=== PATIENT | female | born 1945 | race Caucasian/White ===

== ENCOUNTER 2024-01-01 09:26 | Outpatient (REF) | payer MEDICARE, SELFPAY ==
--- NOTE | ~2024-01-01 | XR_ITS ---
EXAMINATION: XR KNEE, LEFT CLINICAL INFORMATION: Pain in the left knee COMPARISON: None available. TECHNIQUE: Three views of the left knee. FINDINGS: There is normal osseous mineralization. Severe narrowing of the medial and moderate narrowing of the lateral knee joint spaces with subarticular sclerosis. Small marginal tricompartmental osteophytes are noted. No evidence of suprapatellar joint effusion. Vascular calcifications are seen. Narrowing of the patellofemoral joint space is also suspected. No evidence of acute fracture or dislocation. XR/XR knee LT 3V IMPRESSION: Tricompartmental osteoarthritic changes in the left knee, greatest in the medial compartment with moderate changes of osteoarthritis. No acute osseous abnormality.
--- NOTE | ~2024-01-01 | XR_ITS ---
EXAMINATION: XR KNEE, RIGHT CLINICAL INFORMATION: Pain in the right knee. COMPARISON: None available. TECHNIQUE: 3 views of the right knee. FINDINGS: Normal osseous mineralization. There is mild valgus angulation at the knee joint. There is mild medial subluxation of the femoral condyles over the tibial plateau. Severe narrowing of the lateral knee joint space and moderate narrowing of the medial knee joint space. Tricompartmental marginal osteophytes are noted. There is subarticular sclerosis. Small osteophytes versus loose bodies are noted projecting over the medial knee joint space. Tricompartmental small marginal osteophytes. Small suprapatellar joint effusion is suspected. Narrowing of the patellofemoral joint space. No evidence of acute fracture or dislocation. No dystrophic soft tissue calcifications. XR/XR knee RT 3V IMPRESSION: Tricompartmental osteoarthritic changes with mild valgus angulation at the right knee. [id number] osteoarthritic changes at the lateral and patellofemoral compartments. Small osteophyte versus loose bodies projecting over the medial knee joint space. No acute osseous abnormality in the right knee.
== END 2024-01-01 09:27 | disposition home or self-care (01) ==
LOC: HO.HOSX 09:26
PROVIDERS: Visit Provider Orthopaedic Surgery
DX: M25.562 Pain in left knee (principal); M25.561 Pain in right knee
CPT/HCPCS: 73562; 99212

== ENCOUNTER 2024-01-01 12:34 | Outpatient (AMB) | payer MEDICARE, SELFPAY ==
--- NOTE | 2024-01-01 12:36 | A.OFFVIS_ITS ---
Vital Signs 01/01/24 12:54 Height 5 ft 2 in Weight 175 lb BMI 32.0 Intake Visit Reasons: [employer]- b/l knee pain, more pain LT knee Intake Note: Yamel is a 78 yo female who presents with complaints of intermittent pain in both of her knees, left greater than right. She states that her symptoms have gotten somewhat worse over the last few months. She has tried Aleve which s eemed to upset her stomach. She denies any locking or giving way. She has tried Tylenol which gives her minimal relief. Allergies zeclar Allergy (Mild, Uncoded 01/01/24 12:55) Hives Medication List - Last Reconciled 01/01/24 by Konrad Gil MD amlodipine 5 mg PO DAILY estradiol (Estring) 1 vag ring vaginal [id number] hydrochlorothiazide 25 mg PO DAILY ibandronate mg PO levothyroxine 75 mcg PO DAILY omeprazole 40 mg PO DAILY PFSH Social History (Updated 01/01/24 @ 12:58 by LYNDON Lindo) Current occupational status: retired Current occupation: rt handed Physical Exam Vital Signs: BMI result Body Mass Index 32.0 Const Other: Well-nourished well-developed very friendly female awake alert and oriented x3 in no acute distress Extrem Other: Bilateral lower extremity examination shows good capillary refill, no skin lesions noted, normal sensation light touch Bilateral knee examination shows minimal effusions, palpable crepitus with range of motion, pain with range of motion, no instability Results Reviewed Results Reviewed: X-rays of the patient's bilateral knee show joint space narrowing, subchondral sclerosis, no acute bony abnormalities Assessment & Plan Assessment & Plan (1) Right knee pain: Code(s): M25.561 - Pain in right knee Category: Medical (2) Left knee pain: Code(s): M25.562 - Pain in left knee Category: Medical Plan Ms. Braun presents with bilateral knee pains due to degenerative joint disease. I had a lengthy discussion with the patient regarding the treatment options. We will hold off on a cortisone injection for now. I did give the patient a prescription for Celebrex. Activity modifications were also discussed at length with the patient. The patient will follow up with me on an as-needed basis should her symptoms not plateau at an unacceptable level over the next few months. Feel free to call me at any time should questions regarding her orthopedic management arise. I spent 21 minutes in reviewing the patient's records and imaging studies, seeing the patient and documenting in the medical record. Orders: Orders XR knee LT 3V 01/01/24 M25.562 - Pain in left knee XR knee RT 3V 01/01/24 M25.561 - Pain in right knee Medications: New celecoxib (Celebrex) 200 mg PO DAILY PRN 30 caps 3RF pain Coding Level of Care Code Est Pt Level 3 (57432) Diagnoses Right knee pain M25.561 Left knee pain M25.562
[2024-01-01 12:54] VITALS: BMI 32.0
== END 2024-01-01 13:13 | disposition home or self-care (01) ==
PROVIDERS: PCP Internal Medicine; Visit Provider Orthopaedic Surgery
DX: M25.561 Pain in right knee (principal); M25.562 Pain in left knee
CPT/HCPCS: 99214

== ENCOUNTER 2024-01-29 14:13 | Outpatient (AMB) | payer MEDICARE, SELFPAY ==
--- NOTE | 2024-01-29 14:48 | MHC.OFFVIS ---
Intake Visit Reasons: OV-b/l knee pain, more pain LT knee Intake Note: Yamel is a 78 year old female who presents with complaints of progressively worsening bilateral knee pains, left greater than right. She describes her left knee pain as sharp and severe in nature. Her left knee pain has gotten worse over the last few years in spite of continued non operative treatments. She has had cortisone injections which gave her no relief. She has also failed the last 3 months of conservative treatment including a home exercise program, topical creams, anti-inflammatory medicines and Tylenol. At this point the patient's left knee pain is interfering with her activities of daily living and her ability to sleep well through the night. The patient wishes to hold off on left total knee replacement surgery for as long as possible. Allergies zeclar Allergy (Mild, Uncoded 01/29/24 14:54) Hives Medication List - Last Reconciled 01/30/24 by Konrad Gil MD amlodipine 5 mg PO DAILY estradiol (Estring) 1 vag ring vaginal [id number] hydrochlorothiazide 25 mg PO DAILY ibandronate mg PO levothyroxine 75 mcg PO DAILY omeprazole 40 mg PO DAILY PFSH Social History (Reviewed 01/29/24 @ 14:55 by Felicia Preston [facility]) Current occupational status: retired Current occupation: rt handed Physical Exam Const Other: Well-nourished well-developed very friendly female awake alert and oriented x3 in no acute distress Extrem Other: Bilateral lower extremity examination shows good capillary refill, no skin lesions noted, normal sensation light touch Bilateral knee examination shows minimal effusions, palpable crepitus with range of motion, pain with range of motion, range of motion from -3 degrees to 115 degrees, no instability Results Reviewed Results Reviewed: X-rays of the patient's bilateral knees taken previously show joint space narrowing, subchondral sclerosis, no acute bony abnormalities Assessment & Plan Assessment & Plan (1) Osteoarthritis of left knee: Code(s): M17.12 - Unilateral primary osteoarthritis, left knee Category: Medical Plan Ms. Braun presents with progressively worsening bilateral knee pains, left greater than right, due to osteoarthritis. I had a lengthy discussion with the patient regarding the treatment options. The patient wishes to hold off on left total knee replacement surgery for as long as possible. I agree with this plan. I will see whether or not the patient's insurance company will cover a viscosupplementation injection for her left knee. At this point her right knee pain is tolerable to her. I will see her back once the injection is available. Feel free to call me at any time should questions regarding her orthopedic management arise. I spent 21 minutes in reviewing the patient's records and imaging studies, seeing the patient and documenting in the medical record. Coding Level of Care Code Est Pt Level 3 (74089) Diagnoses Osteoarthritis of left knee M17.12
== END 2024-01-29 15:12 | disposition home or self-care (01) ==
PROVIDERS: PCP Internal Medicine; Visit Provider Orthopaedic Surgery
DX: M17.12 Unilateral primary osteoarthritis, left knee (principal)
CPT/HCPCS: 99213

== ENCOUNTER → 2024-01-29 14:13 | Outpatient (BNVA) | payer MEDICARE, SELFPAY | PROVIDERS: PCP Internal Medicine; Visit Provider Orthopaedic Surgery | DX: M17.12 Unilateral primary osteoarthritis, left knee (principal) | CPT/HCPCS: 99212 ==

== ENCOUNTER 2024-02-12 14:22 | Outpatient (AMB) | payer MEDICARE, SELFPAY ==
[2024-02-12 14:24] VITALS: BMI 32.0
--- NOTE | 2024-02-12 14:24 | A.OFFVIS_ITS ---
Vital Signs 02/12/24 14:24 Height 5 ft 2 in Weight 175 lb BMI 32.0 Intake Visit Reasons: Left knee pain Intake Note: Ms. Braun presents with complaints of progressively worsening left knee pain. She describes her pain as sharp and severe in nature. Her pain has gotten worse over the last few years in spite of continued non operative treatments. She has had cortisone injections in the past which gave her minimal relief. She would like to hold off on left total knee replacement surgery for as long as possible. She has tried Tylenol and anti-inflammatory medicines which gave her minimal relief. The patient's left knee pain is now interfering with her activities of daily living and her ability to sleep well through the night. She has done physical therapy exercises which aggravated her pain. Allergies zeclar Allergy (Mild, Uncoded 01/29/24 14:54) Hives Medication List - Last Reconciled 02/13/24 by Konrad Gil MD amlodipine 5 mg PO DAILY estradiol (Estring) 1 vag ring vaginal [id number] hydrochlorothiazide 25 mg PO DAILY ibandronate mg PO levothyroxine 75 mcg PO DAILY omeprazole 40 mg PO DAILY PFSH Social History Current occupational status: retired Current occupation: rt handed Physical Exam Vital Signs: BMI result Body Mass Index 32.0 Const Other: Well-nourished well-developed very friendly female awake alert and oriented x3 in no acute distress Extrem Other: Bilateral lower extremity examination shows good capillary refill, no skin lesions noted, normal sensation light touch Left knee examination shows a mild effusion, palpable crepitus with range of motion, pain with range of motion, range of motion from -3 degrees to 110 degrees, no instability Office Procedures Joint Injection/Aspiration Joint Injection/Aspiration Primary Site: left knee Prep: site was prepped using aseptic technique Injected: 60 mg of (Durolane viscosupplementation) and 1% plain lidocaine Procedure: The patient tolerated the procedure well Coding 98537 - Large joint Procedure code (CPT) selection complete Results Reviewed Results Reviewed: X-rays of the patient's left knee taken previously show joint space narrowing, subchondral sclerosis, no acute bony abnormalities Assessment & Plan Assessment & Plan (1) Osteoarthritis of left knee: Code(s): M17.12 - Unilateral primary osteoarthritis, left knee Category: Medical (2) Left knee pain: Code(s): M25.562 - Pain in left knee Category: Medical Plan Ms. Braun presents with progressively worsening left knee pain due to osteoarthritis. I had a lengthy discussion with the patient regarding the treatment options. The risks and benefits of a Durolane viscosupplementation i njection were discussed at length with the patient. The patient wished to proceed. She tolerated the injection well. Prior to the injection I aspirated 10 cc of clear fluid from her left knee. She will continue with her home exercise program. She will contact me prior to her follow-up appointment in 3 months should any questions or concerns arise. Feel free to call me at any time should questions regarding her orthopedic management arise. I spent 21 minutes in reviewing the patient's records and imaging studies, seeing the patient and documenting in the medical record. Orders: Orders XR hip LT min 2V 03/11/24 M25.552 - Pain in left hip AMB Joint Injection/Aspiration 02/12/24 M17.12 - Unilateral primary osteoarthritis, left knee Coding Level of Care Code Est Pt Level 3 (43662) Complex EM visit Add On G2211 Diagnoses Osteoarthritis of left knee M17.12 Left knee pain M25.562 CPT Codes Coding - 59001 Large joint: 88774 - Large joint ([id number])
== END 2024-02-12 14:54 | disposition home or self-care (01) ==
PROVIDERS: PCP Internal Medicine; Visit Provider Orthopaedic Surgery
DX: M17.12 Unilateral primary osteoarthritis, left knee (principal)
CPT/HCPCS: 20610; 99213

== ENCOUNTER → 2024-02-12 14:22 | Outpatient (BNVA) | payer MEDICARE, SELFPAY | PROVIDERS: PCP Internal Medicine; Visit Provider Orthopaedic Surgery | DX: M17.12 Unilateral primary osteoarthritis, left knee (principal) | CPT/HCPCS: 20610; 99212; J7318 ==

== ENCOUNTER 2024-03-11 13:27 | Outpatient (AMB) | payer MEDICARE, SELFPAY ==
[2024-03-11 13:30] VITALS: BMI 32.0
--- NOTE | 2024-03-11 13:30 | A.OFFVIS_ITS ---
Vital Signs 03/11/24 13:30 Height 5 ft 2 in Weight 175 lb BMI 32.0 Intake Visit Reasons: New prob- Left hip pain Intake Note: Ms. Braun is a 78-year-old female who presents with complaints of mild intermittent discomfort along the lateral aspect of her left hip after undergoing left total hip replacement surgery several years ago. The patient states that she aggravated her left hip several weeks ago while walking her dog. She denies any fevers or chills. She does take Aleve as needed for discomfort. She denies any numbness or tingling in either of her lower extremities. Allergies zeclar Allergy (Mild, Uncoded 01/29/24 14:54) Hives Medication List - Last Reconciled 03/11/24 by Konrad Gil MD amlodipine 5 mg PO DAILY estradiol (Estring) 1 vag ring vaginal [id number] hydrochlorothiazide 25 mg PO DAILY ibandronate mg PO levothyroxine 75 mcg PO DAILY omeprazole 40 mg PO DAILY PFSH Social History Current occupational status: retired Current occupation: rt handed Physical Exam Vital Signs: BMI result Body Mass Index 32.0 Const Other: Well-nourished well-developed very friendly female awake alert and oriented x3 in no acute distress Extrem Other: Bilateral lower extremity examination shows good capillary refill, no skin lesions noted, normal sensation light touch Left hip examination shows minimal discomfort with range of motion, mild tenderness over her bursa overlying skin lesions Results Reviewed Results Reviewed: X-rays of the patient's left hip taken today show a total hip arthroplasty in good position with no signs of loosening, no acute bony abnormalities Assessment & Plan Assessment & Plan (1) Left hip pain: Code(s): M25.552 - Pain in left hip Category: Medical Plan Ms. Braun presents with intermittent discomfort along the lateral aspect of her left hip most likely greater trochanteric bursitis. At this point the patient's symptoms are tolerable to her. We will hold off on a cortisone injection. She will continue with her home exercise program. She does know to take antibiotics before any dental work. She will contact me prior to her annual follow-up appointment should her symptoms worsen in any way. Feel free to call me at any time should questions regarding her orthopedic management arise. I spent 21 minutes in reviewing the patient's records and imaging studies, seececy cuevas the patient and documenting in the medical record. Orders: Orders XR hip LT min 2V Today M25.552 - Pain in left hip Coding Level of Care Code Est Pt Level 3 (80659) Complex EM visit Add On G2211 Diagnoses Left hip pain M25.552
== END 2024-03-11 13:58 | disposition home or self-care (01) ==
PROVIDERS: PCP Internal Medicine; Visit Provider Orthopaedic Surgery
DX: M25.552 Pain in left hip (principal); Z96.642 Presence of left artificial hip joint
CPT/HCPCS: 99213

== ENCOUNTER 2024-03-11 13:57 | Outpatient (REF) | payer MEDICARE, SELFPAY ==
--- NOTE | ~2024-03-11 | XR_ITS ---
EXAMINATION: XR HIP, LEFT CLINICAL INFORMATION: M25.552 - Pain in left hip. COMPARISON: None available. TECHNIQUE: 2 views of the left hip. FINDINGS: Diffuse demineralization. Degenerative changes in the imaged lumbar spine. Mild degenerative changes on AP view of the right hip. Bilateral sacroiliac joints are preserved. Status post left total hip arthroplasty. Alignment maintained. Hardware appears intact. Asymmetric density overlies the left iliac wing, possibly a bony sclerotic lesion such as a bone island versus soft tissue calcification. XR/XR hip LT min 2V IMPRESSION: 1. Status post left total hip arthroplasty. Alignment maintained. Hardware appears intact. 2. Asymmetric density overlies the left iliac wing, possibly a bony sclerotic lesion such as a bone island versus soft tissue calcification. Electronically signed by: Marli Akhtar MD 05/04/2024 11:43 AM [facility]UM[facility] HOWARD
== END 2024-03-11 13:58 | disposition home or self-care (01) ==
LOC: HO.HOSX 13:57
PROVIDERS: Visit Provider Orthopaedic Surgery
DX: M25.552 Pain in left hip (principal)
CPT/HCPCS: 73502; 99212

== ENCOUNTER 2024-05-21 11:26 | Outpatient (AMB) | payer MEDICARE, SELFPAY ==
--- OUTSIDE RECORDS SUMMARY | 2024-05-21 11:29 | XMS_ITS | Data Portability ---
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 Lab pap, IG + reflex HPV 2016 017 [facility], [address] [place], [address] 7 12:04:32 Referral None recorded. Procedures None recorded. Surgeries None recorded. Imaging MAMMO, screening, digital, bilateral 2015 016 aomrani Not available 6 12:14:54 MAMMO, screening, digital, bilateral 2016 017 [email or web address] Not available 7 14:52:25 Medication Orders None recorded. Patient TargetsNo targets recorded. Patient Instructions Encounter Date Encounter Id Patient Instructions Last Modified By Organization Details Last Modified Time 07/25/2015 [id number] Patient presents for a well woman exam. Her history is unremarkable and her exam is normal. She has been counseled regarding Pap smear screening as per guidelines of every three years for cytology review with high risk HPV testing. I have recommended an annual Digital Bilateral Mammogram. I have counseled her about the benefit of performing monthly self-breast exams. We spoke about the recommendation of 1200 mg of daily Calcium supplementation and 600iu of Vitamin D daily. She has been told to schedule a well woman Medication Care Manager exam in one year and to call us with any question or concerns regarding her health and welfare. aomrani Not available 07/25/2015 11:19:51 11/12/2016 [id number] Patient presents for a well woman exam. Her history is unremarkable and her exam is normal. She has been counseled regarding Pap smear screening as per guidelines of every three years for cytology review with high risk HPV testing. I have recommended an annual Digital Bilateral Mammogram . I have counseled her about the benefit of performing monthly self-breast exams. We spoke about the recommendation of 1200 mg of daily Calcium supplementation and 600iu of Vitamin D daily. She was been told to schedule a well woman Medication Care Manager exam in one year and to call us with any question or concerns regarding her health and welfare. aomrani Not available 11/12/2016 11:16:17 01/31/2018 [id number] Patient presents for a well woman exam. Her history is unremarkable and her exam is normal. She has been counseled regarding Pap smear screening as per guidelines of every three years for cytology review with high risk HPV testing. I have recommended an annual Digital Bilateral Mammogram . I have counseled her about the benefit of performing monthly self-breast exams. We spoke about the recommendation of 1200 mg of daily Calcium supplementation and 600iu of Vitamin D daily. She was been told to schedule a well woman Medication Care Manager exam in one year and to call us with any question or concerns regarding her health and welfare. aomrani Not available 01/31/2018 13:19:30 02/12/2020 [id number] Patient presents for a well woman exam. Her history is unremarkable and her exam is normal. She has been counseled regarding Pap smear screening as per guidelines of every three years for cytology review with high risk HPV testing. I have recommended an annual Digital Bilateral Mammogram . I have counseled her about the benefit of performing monthly self-breast exams. We spoke about the recommendation of 1200 mg of daily Calcium supplementation and 600iu of Vitamin D daily. She was been told to schedule a well woman Medication Care Manager exam in one year and to call us with any question or concerns regarding her health and welfare. [email or web address] Not available 02/12/2020 12:44:22 04/20/2022 [id number] Patient presents for a well woman exam. Her history is unremarkable and her exam is normal. She has been counseled regarding Pap smear screening as per guidelines of every three years for cytology review with high risk HPV testing. I have recommended an annual Digital Bilateral Mammogram . I have counseled her about the benefit of performing monthly self-breast exams. We spoke about the recommendation of 1200 mg of daily Calcium supplementation and 600iu of Vitamin D daily. She was been told to schedule a well woman Medication Care Manager exam in one year and to call us with any question or concerns regarding her health and welfare. [email or web address] Not available 04/20/2022 12:51:59 Reason for Referral None Reported. Results Created Date Observation Date Name Description Value Unit Range Abnormal Flag Note LastModifiedBy Organization Detail LastModifiedTime 11/13/19 17 11/13/2016 pap, IG + refle x HPV report GYNEC OLOGI BILL CYTOL OGY REPOR T A. THINP REP PAP TEST WITH HPV REFLE X: SPECI MEN ADEQU ACY: SATIS FACTO RY FOR EVALU ATION ; ENDOC ERVIC AL/TR ANSFO RMATI ON ZONE COMPO NENT PRESE NT. INTER PRETA TION: NEGAT GUERO FOR INTRA EPITH ELIAL LESIO N OR YAIR VILLAVICENCIO . Elect shoshana huizar Ping d Out By: KELLI RICHARD, TJ( CP) CLINI BILL INFOR MATTRISH N: LMP: NI Z01.4 19 Numbe r of vials /slid es submi tted: 1 Speci men sourc e: CERVI X/END OCERV IX Abnor mal Pap Date: NI Autom ated presc reeni ng of all liqui d based speci mens is perfo rmed by the ThinP rep Imagi ng Syste mmoises s other pierce state d. The Pap test is a scree stacey test with an inher ent false negat guero rate. [facility]i ng [facility] , [address] [place] [address] CLIA [id number] CL-PO [id number]. Not Available [facility] [address] [place], [address] 11/13/2016 12:04:32 04/18/20 22 04/18/2022 [facility]Y ASSES SMENT RESUL T [facility] - cancer history assessment result Meets criter ia abnormal See PDF for compl ete resul ts. [facility] it[facility] cance [facility] crite gabriel asses sment - MEETS CHAPARRITA HINES NCCN FAP 2021 Not Available [facility] [address], [place], [address], 04/18/2022 13:28:33 05/23/20 16 05/21/2016 MAMMO , scree stacey, digit al, bilat eral No observ ation record ed. [email or web address] Not Available 2015 14:08:06 06/14/19 18 06/07/2017 MAMMO , scree stacey, digit al, bilat eral No observ ation record ed. Not Available 2017 08:05:34 06/15/19 20 06/11/2019 MAMMO , scree stacey, tomos ynthe sis, bilat eral No observ ation record ed. [email or web address] Not Available 2019 10:38:03 07/06/19 21 07/06/2020 MAMMO , scree stacey, bilat eral No observ ation record ed. BARCODE Not Available 2020 15:36:44 07/18/19 21 07/18/2020 imagi ng/di agnos tic resul t No observ ation record ed. Not Available 2020 10:18:16 02/27/20 22 02/21/2022 MAMMO , scree stacey, digit al, bilat eral No observ ation record ed. [email or web address] Not Available 2021 13:12:39 03/02/20 22 03/02/2022 imagi ng/di agnos tic resul t No observ ation record ed. Not Available 2021 11:11:47 03/02/20 22 03/02/2022 imagi ng/di agnos tic resul t No observ ation record ed. Not Available 2021 11:11:47 Result Notes None recorded. Problems Name Problem SNOMED Code Status Onset Date Resolution Date Notes Provider Name and Address Organization Details Recorded Time Benign essential hypertension 6451476 Active 2008 aLla Gresham null, [place] [facility] 6 09:53:55 Chronic pain 39106818 Active 2011 Lala bradford, [facility] 6 09:53:55 Problem Notes None recorded. Procedures Surgical History Date Name Laterality Status Provider Name and Address Organization Details Recorded Time 04/20/20 22 [id number] completed MICHELLE JACOME MD [address], [place], [address], [facility] 04/20/2022 12:50:09 02/22/20 22 Date of Last Mammogram completed Lala Gresham [facility] 04/20/2022 12:31:21 06/10/19 22 Other completed Lala Gresham [facility] 04/20/2022 12:31:38 02/12/20 20 [id number] completed MICHELLE JACOME MD [address], [place], [address], [facility] 02/12/2020 12:44:07 06/10/19 20 Cataract Surgery completed Lala Gresham [facility] 04/20/2022 12:31:38 02/01/20 18 [id number] completed MICHELLE JACOME MD [address], [place], [address], [facility] 01/31/2018 13:18:47 11/13/19 17 [id number] completed MICHELLE JACOME MD [address], [place], [address], [facility] 11/12/2016 11:15:36 11/13/19 17 [id number]-[id number] completed MICHELLE JACOME MD [address], [place], [address], [facility] 11/12/2016 11:15:32 11/13/19 17 [id number] completed MICHELLE JACOME MD [address], [place], [address], [facility] - [facility] 11/12/2016 11:15:25 11/13/19 17 [id number] completed MICHELLE JACOME MD [address], [place], [address], [facility] - [facility] 11/12/2016 11:15:41 11/13/19 17 [id number] completed MICHELLE JACOME MD [address], [place], [address], [facility] - [facility] 11/12/2016 11:15:28 11/13/19 17 Date of Last Pap Smear completed Page Davenport [facility] 01/31/2018 11:50:49 07/25/19 16 [id number] completed MICHELLE JACOME MD [address], [place], [address], [facility] 07/25/2015 11:19:33 07/25/19 16 [id number] completed MICHELLE JACOME MD [address], [place], [address], [facility] - [facility] 07/25/2015 11:19:33 07/25/19 16 [id number] completed MICHELLE JACOME MD [address], [place], [address], [facility] 07/25/2015 11:19:33 07/25/19 16 [id number] completed MICHELLE JACOME MD [address], [place], [address], [facility] - [facility] 07/25/2015 11:19:33 07/25/19 16 [id number] completed MICHELLE JACOME MD [address], [place], [address], [facility] 07/25/2015 11:19:33 Tonsillectomy completed Page Davenport [facility] 11/12/2016 10:21:56 Appendectomy completed Page Davenport [facility] 11/12/2016 10:21:48 Imaging Results Imaging Date Name Status LastModified by Organiz ation Details LastModified Time 05/21/2016 MAMMO, screening, digital, bilateral completed [email or web address] Information not available 05/23/2016 14:08:06 06/07/2017 MAMMO, screening, digital, bilateral completed Information not available 06/21/2017 08:05:34 06/11/2019 MAMMO, screening, tomosynthesis, bilateral completed [email or web address] Information not available 06/15/2019 10:38:03 07/06/2020 MAMMO, screening, bilateral completed BARCODE Information not available 07/06/2020 15:36:44 07/18/2020 imaging/diagno stic result completed Information not available 07/27/2020 10:18:16 02/21/2022 MAMMO, screening, digital, bilateral completed [email or web address] Information not available 02/26/2022 13:12:39 03/02/2022 imaging/diagno stic result completed Information not available 03/15/2022 11:11:47 03/02/2022 imaging/diagno stic result completed Information not available 03/15/2022 11:11:47 Procedure Notes None recorded. Medical Equipment None Reported. Allergies Allergen ID Allergen Name Allergen Category Reaction Reaction Severity Criticality Documentation Date Start Date Code Code System Note Provider Name and Address Organization Details Recorded Time 286447 amoxicill in trihydrat e medicatio n Not available Not available Not available 10/02/20142007 23068 8 RxNorm Not Available [facility] 5 14:39:44 703947 Ceclor medicatio n Not available Not available Not available 11/12/201609359 5 RxNorm Page Davenport null, [facility] 7 10:20:03 Medications Name Sig Start Date Stop Date Status Note LastModified by Organization Details LastModified Time Estring 2 mg (7.5 mcg/24 hour) vaginal ring INSERT 1 RING VAGINALL Y EVERY 3 MONTHS 12/26/ 2023 active Not Available Not Available Not Avai lable Carafate 100 mg/mL oral suspensio n 01/31 completed Not Available Not Available Not Available clindamyc in HCl 300 mg capsule TAKE 2 CAPSULES BY MOUTH 1 HOUR PRIOR TO DENTAL APPOINTM ENT 04/20 completed Not Available Not Available Not Available ondansetr on HCl 4 mg tablet TAKE 1 TABLET BY MOUTH DAILY NEEDED FOR NAUSEA.O N COLONOSC OPY PREP DAY START 1 TABLET BY MOUTH EVERY 6 HOURS TO PREVENT PREP INDUCED NAUSEA 04/20 completed Not Available Not Available Not Available amlodipin e 5 mg tablet TAKE 1 TABLET BY MOUTH ONCE DAILY active Not Available Not Available No t Available Diovan 80 mg tablet TAKE 1 TABLET (80MG) BY ORAL ROUTE EVERY DAY 02/10 completed PRESCRIB ED ELSEWHER E Not Available Not Available Not Available sulfameth oxazole 800 mg-trimet hoprim 160 mg tablet TAKE 1 TABLET BY MOUTH TWICE DAILY FOR 7 DAYS 04/20 completed Not Available Not Available Not Available omeprazol e 40 mg capsule,d elayed release TAKE 1 CAPSULE BY MOUTH ONCE DAILY active Not Available Not Available No t Available Mi-Acid Gas Relief (simethic one) 80 mg chewable tablet 04/20 completed Not Available Not Available Not Available omeprazol e 10 mg capsule,d elayed release TAKE 2 CAPSULE BY ORAL ROUTE EVERY DAY BEFORE A MEAL 11/12 completed Not Available Not Available Not Available methocarb samuel 750 mg tablet TAKE 1 TABLET BY MOUTH EVERY 8 HOURS NEEDED 04/20 completed Not Available Not Available Not Available meclizine 25 mg tablet TAKE 1 TABLET BY MOUTH EVERY 6 TO 8 HOURS NEEDED 04/20 completed Not Available Not Available Not Available pantopraz ole 40 mg tablet,de layed release 01/31 completed Not Available Not Available Not Available telmisart an 40 mg tablet TAKE 1 TABLET BY MOUTH ONCE DAILY 04/20 completed Not Available Not Available Not Available neomycin- polymyxin -dexameth 3.5 mg/mL-10, 000 unit/mL-0 .1% eye drops 02/06 completed Not Available Not Available Not Available ranitidin e 150 mg tablet 01/31 completed Not Available Not Available Not Available Euthyrox 50 mcg tablet TAKE 1 TABLET BY MOUTH ONCE DAILY active Not Available Not Available No t Available bisacodyl 5 mg tablet,de layed release TAKE DIRECTED BY MD OFFICE PREPROCE DURE 04/20 completed Not Available Not Available Not Available hydrochlo rothiazid e 25 mg tablet TAKE 1 TABLET BY MOUTH ONCE DAILY active Not Available Not Available No t Available polyethyl augusta glycol 3350 17 gram/dose oral powder MIX 17GM DIRECTED IN 8 OZ OF WATER AND TAKE ONCE DAILY FOR 7 DAYS PRIOR TO COLONOSC OPY 04/20 completed Not Available Not Available Not Available levofloxa lucia 500 mg tablet 02/06 completed Not Available Not Available Not Available oxycodone 5 mg tablet TAKE 1 TO 2 TABLETS EVERY 4 HOURS NEEDED FOR PAIN AFTER SURGERY 04/20 completed Not Available Not Available Not Available Pneumovax -23 25 mcg/0.5 mL injection syringe 02/11 completed Not Available Not Available Not Available Fosamax 70 mg/75 mL oral solution TAKE 75 MILLILIT ER EVERY WEEK IN THE MORNING, AT LEAST 30 MINUTES BEFORE THE FIRST FOOD, BEVERAGE , O R MEDICATI ON OF THE DAY 11/23 completed PRESCRIB ED ELSEWHER E Not Available Not Available Not Available ibandrona te 150 mg tablet TAKE 1 TABLET BY MOUTH EVERY MONTH ON THE SAME DAY 2023 active Not Available Not Available Not Avai lable Metamucil active Not Available Not Wendi ilable Not Available olopatadi ne 0.2 % eye drops INSTILL 1 DROP BOTH EYES EVERY MORNING active Not Available Not Available No t Available Suprep Bowel Prep Kit 17.5 gram-3.13 gram-1.6 gram oral solution TAKE 177 ML BY MOUTH TWICE DAILY (EVERY 12 HOURS) 04/20 completed Not Available Not Available Not Available Virtussin AC 10 mg-100 mg/5 mL oral liquid 02/06 completed Not Available Not Available Not Available selenium sulfide 2.5 % lotion APPLY TO AFFECTED AREA EVERY DAY FOR 7 DAYS 04/20 completed Not Available Not Available Not Available Shingrix (PF) 50 mcg/0.5 mL intramusc ular suspensio n, kit active Not Available Not Available Not Available Fluzone High-Dose 2813-3622 (PF) 180 mcg/0.5 mL intramusc ular syringe 02/11 completed Not Available Not Available Not Available Plenvu 140 gram-9 gram-5.2 gram powder packs USE DIRECTED PER PACKAGE INSTRUCT IONS 04/20 completed Not Available Not Available Not Available Fluad 2018- 65yr up(PF)45 mcg(15 mcgx3)/0. 5 mL intramusc ular syringe 02/11 completed Not Available Not Available Not Available Fluad Quad 9228-0726 (65yr up)(PF) 60 mcg (15 mcg x 4)/0.5mL IM syringe 04/20 completed Not Available Not Available Not Available Vitals Date Recorded Body height Body weight Body mass index (BMI) Systolic blood pressure Diastolic blood pressure Provider Name and Address Organization Details Last Updated DateTime 07/25/2015 157.48 cm 45577.07 238 g 31.8 kg/m2 120 mm[Hg] 74 mm[Hg] Lala Gresham [facility] 6 10:02:03 Date Recorded Body height Body weight Body mass index (BMI) Systolic blood pressure Diastolic blood pressure Provider Name and Address Organization Details Last Updated DateTime 11/12/2016 157.48 cm 33928.63 g 32.9 kg/m2 162 mm[Hg] 82 mm[Hg] Page Davenport [facility] 7 10:32:03 Date Recorded Body height Body mass index (BMI) Body weight Systolic blood pressure Diastolic blood pressure Provider Name and Address Organization Details Last Updated DateTime 01/31/2018 157.48 cm 33.3 kg/m2 89555.81 g 154 mm[Hg] 93 mm[Hg] TRIAGE_MA O3 [address] [facility], [address], [place], [address], [facility] 8 12:04:24 Date Recorded Body height Body mass index (BMI) Body weight Body temperature Systolic blood pressure Diastolic blood pressure Provider Name and Address Organization Details Last Updated DateTime 0 157.48 cm 33.7 kg/m2 50570 g 98.4 [degF] 132 mm[Hg] 86 mm[Hg] Lala Gresham [facility] 0 11:56:36 Date Recorded Body height Body mass index (BMI) Body weight Systolic blood pressure Diastolic blood pressure Provider Name and Address Organization Details Last Updated DateTime 04/20/2022 157.48 cm 28.7 kg/m2 42372 g 169 mm[Hg] 82 mm[Hg] Lala Gresham [place] - [facility] 12:42:19 Social History Question Answer Notes LastModified by Organizat ion Details LastModified Time Tobacco Smoking Status Former Smoker [email or web address] [address] [facility], [address], [place], [address], [facility] - [facility] 01/31/2018 11:56:01 What Is Your Level Of Alcohol Consumption? Moderate Information not available 01/31/2018 Concerns About Meeting Basic Needs (food, Housing, Heat, Etc)? No Information not available 04/20/2022 Education 2 Year College Information not available 04/20/2022 What Is The Highest Grade Or Level Of School You Have Completed Or The Highest Degree You Have Received? [id number] Information not available 04/20/2022 Do You Have Any Children? Yes Information not available 01/31/2018 Does Your Partner Physically Hurt You Or Threaten To Hurt You? No Information not available 11/12/2016 Has Your Partner Forced You To Have Sex Or Perform Sex Acts When You Did Not Want To? No Information not available 11/12/2016 Does Your Partner Insult, Scream At Or Talk Down To You? No Information not available 11/12/2016 Does Your Partner Control You Or Any Part Of Your Life? No Information not available 11/12/2016 Are You Afraid Of Your Partner? No Information not available 11/12/2016 Drug Use? No Information no t available 11/12/2016 Do You Feel Safe At Home? Yes Information not available 01/31/2018 What Was The Date Of Your Most Recent Tobacco Screening? 01/31/2018 Information not available 04/20/2022 How Many Children Do You Have? 2 Information not available 01/31/2018 How Much Tobacco Do You Smoke? No Information not available 04/20/2022 General Stress Level Low Information not available 04/20/2022 Do You Feel Stressed (tense, Restless, Nervous, Or Anxious, Or Unable To Sleep At Night)? [id number] Information not available 04/20/2022 Have You Recently Traveled Abroad? No Information not available 02/12/2020 Have You Recently (within The Last 12 Weeks, Or During A Current ) Traveled To Or Lived In A Zika-affected Area? No Information not available 04/20/2022 Sex: Female Functional Status Question Answer Note LastModified by Organizat ion Details LastModified Time What is your exercise level? Occasional Information not available 01/31/2018 Mental Status None recorded. Family History Relationship Description Onset Age of this Age Resolved Age Notes LastModified by Organization Details LastModified Time Father Toxic cirrhosis Not available 2015 09:58:05 Brother Murder murder victim Not available 07/25/2015 09:58:05 Medical History Condition Response *No Diseases or Conditions Y Blood clots N Lung Disease N Depression N Defects or Inherited Disease N Anesthesia Complications N Neurological Disorder N Anxiety Disorder N HSV N Cancer N Stroke N HIV N Heart Problems N Kidney or Bladder Problems N Thyroid Problems Y Psychiatric Illness N Diabetes N Blood Transfusions N Abuse/Domestic Violence N Asthma N Hepatitis N Hypertension Y Osteoporosis Y Gynecological History Statement/Question Response BrCa Positive N Infertility N Date of Last Mammogram 02/21/2022 IPV Screen Done 02/12/2020 HPV Vaccine N Endometriosis Y Current Control Method N/A Age at Menarche 16 Fibroids N Age at First Child 26 Cervical Cancer N Uterine Cancer N Current Control Method Menopause Ovarian Cancer N Breast Cancer N Sexually Active? Y Sexual Problems? N Date of Last Pap Smear 11/12/2016 Last HPV Result Negative Obstetrics History GPAL:G 2 P 2 0 0 2 Type Value Full Term 2 Living 2 Total 2 Past Encounters Encounter ID Performer Location Encounter Start Date Encounter Closed Date Diagnosis/Indication Diagnosis SNOMED-CT Code Diagnosis ICD10 Code [id number] MICHELLE JACOME MD MAO4 [address] [facility] [place] [address] 07/25/2015 09:48:19 07/25/2015 15:26:26 Gynecologic examination 40098510 Z01.419 Screening mammography 24 670186 Z12.31 [id number] MICHELLE JACOME MD MAO3 [address] [address] 11/12/2016 09:44:45 11/14/2016 11:34:13 Gynecologic examination 64386556 Z01.419 Screening mammography 24 926017 Z12.31 [id number] MD [facility] [address] [address] 01/31/2018 11:30:27 02/03/2018 10:38:38 Gynecologic examination 68966863 Z01.419 Screening mammography 24 446993 Z12.31 [id number] MD [facility] [address] [address] 02/12/2020 11:42:23 02/16/2020 10:13:39 Gynecologic examination 04879130 Z01.419 Screening mammography 24 532690 Z12.31 [id number] MD [facility] [address] [address] 04/20/2022 12:06:51 04/23/2022 13:57:32 Gynecologic examination 60786566 Z01.419 Screening mammography 24 379018 Z12.31 Health Concerns Section Related Observation LastModified by Organization Detai ls LastModified Time None Recorded Concern Status LastModified by Organization Details LastModified Time None Recorded Advance Directives Directive None Recorded Payers Encounter Date Sequence Insurance Name Policy Number Policy Partida Covered Member ID Partida Member ID Guarantor Name 07/25/2015 1 [place]: [place]GS Yamel E [place] [id number] Yamel E [place] 07/25/2015 1 [place] [id number] Connor Braun [id number] Yamel E [place]ford 11/12/2016 1 [place] Yamel E [place] [id number] Yamel E [place] 11/12/2016 1 [place] [id number] Connor Braun [id number] Yamel E [place] 01/31/2018 1 [facility] (MEDICARE REPLACEMENT/A DVANTAGE - PPO) [id number] Yamel E [place]ford [id number] Yamel Goodman [place] 02/12/2020 1 [facility] (MEDICARE REPLACEMENT/A DVANTAGE - PPO) [id number] Yamel Goodman [place] [id number] Yamel E [place] 04/20/2022 1 [facility] (MEDICARE REPLACEMENT/A DVANTAGE - PPO) [id number] Yamel Goodman [place] [phone] Yamel Braun Notes Date Note Type Note Provider Name and Address Organization Details Recorded Time 07/25/2015 text/html [facility] Annual GYNReported bypatient.History: no gynecologic complaints Urinary symptoms:No hematuria; No incontinence Vulva:No genital lesion Vagina:Normal vaginal discharge Breast:No breast pain; No breast lump; No nipple discharge Menopausal Symptoms:No menopausal symptoms; Normal vaginal lubrication Psychological symptoms:No depression; No anxiety Preventive measures:Encourage self breast examination; Encourage regular exercise; Mammogram performed within the past year MICHELLE JACOME MD [address] [place] [address] 07/25/2015 11:20:00 11/12/2016 text/html [facility] Annual GYNReported bypatient.History: no gynecologic complaints Urinary symptoms:No hematuria; No incontinence Vulva:No genital lesion Vagina:Normal vaginal discharge Breast:No breast pain; No breast lump; No nipple discharge Menopausal symptoms:No menopausal symptoms; Normal vaginal lubrication Psychological symptoms:No depression; No anxiety Preventive measures:Encourage self breast examination; Encourage regular exercise; Mammogram performed within the past year; Up to date on colonoscopy screening; DEXA needs to schedule MICHELLE JACOEM MD [address] [place] [address], [address] [place] [address] 11/12/2016 11:57:19 01/31/2018 text/html [facility] Annual GYNReported bypatient.History: no gynecologic complaints Urinary symptoms:No hematuria; No incontinence Vulva:No genital lesion Vagina:Normal vaginal discharge Breast:No breast pain; No breast lump; No nipple discharge Menopausal symptoms:No menopausal symptoms; Normal vaginal lubrication Psychological symptoms:No depression; No anxiety Preventive measures:Encourage self breast examination; Encourage regular exercise; Mammogram performed within the past year MICHELLE JACOME MD [address], [phone], [facility] 01/31/2018 13:19:53 02/12/2020 text/html [facility] Annual GYNReported bypatient.History: no gynecologic complaints Urinary symptoms:No hematuria; No incontinence Vulva:No genital lesion Vagina:Normal vaginal discharge Breast:No breast pain; No breast lump; No nipple discharge Menopausal symptoms:No menopausal symptoms; Normal vaginal lubrication Psychological symptoms:No depression; No anxiety Preventive measures:Encourage self breast examination; Encourage regular exercise; Mammogram performed within the past year; Up to date on colonoscopy screening MICHELLE JACOME MD [address], [phone], [facility] 02/12/2020 12:44:41 04/20/2022 text/html [facility] Annual GYNReported bypatient.History: no gynecologic complaints Urinary symptoms:No hematuria; No incontinence Vulva:No genital lesion Vagina:Normal vaginal discharge Breast:No breast pain; No breast lump; No nipple discharge Menopausal symptoms:No menopausal symptoms; Normal vaginal lubrication Psychological symptoms:No depression; No anxiety Preventive measures:Encourage self breast examination; Encourage regular exercise; Followed with Q3 year pap smear and high risk HPV typing; Mammogram performed within the past year Lost > 30# . Had a hip replacement. MICHELLE JACOME MD [address], [phone], [facility] 04/20/2022 13:18:58 OBGyn Episode No OBEpisode recorded.
--- NOTE | 2024-05-21 11:47 | MHC.OFFVIS ---
Vital Signs 05/21/24 11:50 Height 5 ft 2 in Weight 175 lb BMI 32.0 Intake Visit Reasons: OV-Left hip pain Intake Note: Yamel is a 78 year old female who presents today for a follow up of her left hip pain. The patient states that her discomfort has improved significantly. She reports mild intermittent discomfort along the lateral aspect of her left hip. She denies any fevers or chills. She does take oxycodone intermittently to help her sleep. Allergies zeclar Allergy (Mild, Uncoded 01/29/24 14:54) Hives Medication List - Last Reconciled 05/21/24 by Konrad Gil MD amlodipine 5 mg PO DAILY estradiol (Estring) 1 vag ring vaginal [id number] hydrochlorothiazide 25 mg PO DAILY ibandronate mg PO levothyroxine 75 mcg PO DAILY omeprazole 40 mg PO DAILY PFSH Social History Current occupational status: retired Current occupation: rt handed Physical Exam Vital Signs: BMI result Body Mass Index 32.0 HEENT Other: Well-nourished well-developed very friendly female awake alert and oriented x3 in no acute distress Extrem Other: Bilateral lower extremity examination shows good capillary refill, no skin lesions noted, normal sensation light touch Left hip examination shows that the surgical incision is well healed, no erythema, minimal discomfort with range of motion, mild tenderness over her bursa, no overlying skin lesions Assessment & Plan Assessment & Plan (1) Left hip pain: Code(s): M25.552 - Pain in left hip Category: Medical Plan Ms. Braun presents with intermittent discomfort along the lateral aspect of her left hip most likely due to greater trochanteric bursitis. I had a lengthy discussion with the patient regarding the treatment options. At this point the patient's symptoms are tolerable to her. We will hold off on a cortisone injection. She will contact me prior to her annual follow-up appointment should any questions or concerns arise. Feel free to call me at any time should questions regarding her orthopedic management arise. I spent 22 minutes in reviewing the patient's records and imaging studies, seeing the patient and documenting in the medical record. Medications: New oxycodone Partial Fill upon patient request. 5 mg PO Q24H PRN 25 tabs 0RF pain Coding Level of Care Code Est Pt Level 3 (99346) Complex EM visit Add On G2211 Diagnoses Left hip pain M25.552
[2024-05-21 11:50] VITALS: BMI 32.0
== END 2024-05-21 12:16 | disposition home or self-care (01) ==
PROVIDERS: PCP Internal Medicine; Visit Provider Orthopaedic Surgery
DX: M25.552 Pain in left hip (principal)
CPT/HCPCS: 99213; G2211

== ENCOUNTER → 2024-05-21 11:26 | Outpatient (BNVA) | payer MEDICARE, SELFPAY | PROVIDERS: PCP Internal Medicine; Visit Provider Orthopaedic Surgery | DX: M25.552 Pain in left hip (principal) | CPT/HCPCS: 99212 ==

== ENCOUNTER 2024-09-22 11:15 | Outpatient (AMB) | payer MEDICARE, SELFPAY ==
--- NOTE | 2024-09-22 11:17 | MHC.OFFVIS ---
Vital Signs 09/22/24 11:18 Height 5 ft 2 in Weight 175 lb BMI 32.0 Intake Visit Reasons: Bilateral knee pains Intake Note: Yamel is a 78 year old female who presents with complaints of progressively worsening bilateral knee pains. She describes her pains as sharp in nature. Her pains have gotten worse over the last few months in spite of continued non operative treatments. She has failed the last 3 months of conservative treatment which has included a home exercise program, physical therapy exercises, Tylenol and anti-inflammatory medicines. She has had cortisone injections which gave her minimal relief. She has also had Durolane viscosupplementation injections which gave her very good relief. She wishes to hold off on surgery if at all possible. At this point her bilateral knee pains are interfering with her activities of daily living and her ability to sleep well through the night. Allergies zeclar Allergy (Mild, Uncoded 09/22/24 11:18) Hives Medication List - Last Reconciled 09/22/24 by Konrad Gil MD amlodipine 5 mg PO DAILY estradiol (Estring) 1 vag ring vaginal [id number] hydrochlorothiazide 25 mg PO DAILY ibandronate mg PO levothyroxine 75 mcg PO DAILY omeprazole 40 mg PO DAILY oxycodone 5 mg PO Q24H PRN PFSH Social History Current occupational status: retired Current occupation: rt handed Physical Exam Vital Signs: BMI result Body Mass Index 32.0 Const Other: Well-nourished well-developed very friendly female awake alert and oriented x3 in no acute distress Extrem Other: Bilateral lower extremity examination shows good capillary refill, no skin lesions noted, normal sensation light touch Bilateral knee examination shows minimal effusions, palpable crepitus with range of motion, pain with range of motion, no instability Results Reviewed Results Reviewed: X-rays of the patient's bilateral knee show joint space narrowing, subchondral sclerosis, no acute bony abnormalities Assessment & Plan Assessment & Plan (1) Osteoarthritis of left knee: Code(s): M17.12 - Unilateral primary osteoarthritis, left knee Category: Medical (2) Osteoarthritis of right knee: Code(s): M17.11 - Unilateral primary osteoarthritis, right knee Category: Medical Plan Ms. Braun presents with bilateral knee pains due to osteoarthritis. I had a lengthy discussion with the patient regarding the treatment options. She wishes to hold off on surgery if at all possible. I agree with this plan. I will see whether or not her insurance company will cover a viscosupplementation injection, such as Durolane, for both of her knees. I will see her back once the injections are available. Feel free to call me at any time should questions regarding her orthopedic management arise. I spent 22 minutes in reviewing the patient's records and imaging studies, seeing the patient and documenting in the medical record. Coding Level of Care Code Est Pt Level 3 (86529) Complex EM visit Add On G2211 Diagnoses Osteoarthritis of left knee M17.12 Osteoarthritis of right knee M17.11
[2024-09-22 11:18] VITALS: BMI 32.0
--- OUTSIDE RECORDS SUMMARY | 2024-09-22 13:53 | XMS_ITS | Encounter Summary ---
Author Organization [facility] Address [address] [place] [address] Care Team Providers Care Registered Midwife Name Role Phone Tahir Ceja MD Primary Care Provider [phone] Encounter Details Date Type Department Care Team (Late st Contact Info) Description 08/09/2021 Scanned Document [facility] [address] [facility] [place] [address] [place] [address] Winston Brand MD [address] [facility] [place] [address] Social History Tobacco Use Types Packs/Day Years Used Date Smoking Tobacco: Former Smokeless Tobacco: Never Alcohol Use Standard Drinks/Week Comments Yes 14 (1 standard drink = 0.6 oz pu re alcohol) Sex and Gender Information Value Date Recorded Sex Assigned at Not on file Gender Identity Not on file Sexual Orientation Not on file COVID-19 Exposure Response Date Recorded In the last month, have you been in contact with someone who was confirmed or suspected to have Coronavirus / COVID-19? No / Unsure 08/09/2021 12:23 PM EST documented as of this encounter Progress Notes * Winston Brand MD - 08/09/2021 1:41 PM EST Biopsies from the colonoscopy show that the polyp that was not removed appears to be consistent with a tubular adenoma which is benign but potentially can turn into colon cancer and needs to be removed by advanced endoscopist at [facility]. Let me know if patient agrees and this procedure can be set up. The polyp that was removed was a tubular adenoma which was a benign precancerous polyp. 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 Repeat endoscopy is recommended in 3 years. The polyp should be removed in the next 3 to 6 months. * Winston Brand MD - 08/09/2021 1:41 PM EST She should schedule colonoscopy before February 2022. Let me know if she is good with that and I will set up colonoscopy for February 2022 documented in this encounter Plan of Treatment Not on file documented as of this encounter Procedures Procedure Name Priority Date/Time Associated Diagnosis Comments PATHOLOGY REPORT 08/09/2021 12:0 0 AM EST documented in this encounter Results * PATHOLOGY REPORT (08/09/2021 12:00 AM EST) Winston Brand MD PATHOLOGY/CYTOLOGY O RDERABLES documented in this encounter Visit Diagnoses Not on filedocumented in this encounter Care Teams Registered Midwife Relationship Specialty Start Date End Date Tahir Ceja MD [address] [place] [id number] PCP - General Internal Medicine 02/22/21 documented as of this encounter
--- OUTSIDE RECORDS SUMMARY | 2024-09-22 13:53 | XMS_ITS | Data Portability ---
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 Lab pap, IG + reflex HPV 2016 017 [facility], [address] [place], [address] 7 12:04:32 Referral None recorded. Procedures None recorded. Surgeries None recorded. Imaging MAMMO, screening, digital, bilateral 2016 017 [email or web address] Not available 7 14:52:25 MAMMO, screening, digital, bilateral 2015 016 [email or web address] Not available 6 12:14:54 Medication Orders None recorded. Patient TargetsNo targets recorded. Patient Instructions Encounter Date Encounter Id Patient Instructions Last Modified By Organization Details Last Modified Time 07/25/2015 [id number] Patient presents for a well woman exam. 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 [email or web address] Not available 07/25/2015 11:19:51 11/12/2016 [id number] Patient presents for a well woman exam. 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 [email or web address] Not available 11/12/2016 11:16:17 01/31/2018 [id number] Patient presents for a well woman exam. 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 [email or web address] Not available 01/31/2018 13:19:30 02/12/2020 [id number] Patient presents for a well woman exam. 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 [email or web address] Not available 02/12/2020 12:44:22 04/20/2022 [id number] Patient presents for a well woman exam. [...] been told to schedule a well woman Websphere Developer exam in one year and to call [...] at [facility] , [address] [place] [address] CLIA [id number] CL-PO [id number]. Not Available [facility] [address] [place], [address] 11/13/2016 12:04:32 04/18/20 22 04/18/2022 [facility] - [facility] [place] [facility] [place] assessment result Meets criter ia abnormal See PDF for compl ete resul ts. [facility] Hered itary cance r crite gabriel asses sment - MEETS CHAPARRITA HINES NCCN FAP 2021 Not Available [facility] [address], [place], [address], 04/18/2022 13:28:33 05/23/20 16 05/21/2016 MAMMO , [...] Organization Details Recorded Time Benign essential hypertension 9790484 Active 2008 Lala Gresham null, [place] - [facility] 6 09:53:55 Chronic pain 11220827 Active 2011 Lala bradford, [facility] 6 09:53:55 Problem Notes None recorded. Procedures Surgical History Date Name Laterality Status Provider Name and Address Organization Details Recorded Time 04/20/20 22 [id number] completed MICHELLE JACOME MD [address], [place], [address], [facility] 04/20/2022 12:50:09 02/22/20 22 Date of Last Mammogram completed Lala Gresham [facility] 04/20/2022 12:31:21 06/10/19 22 Other completed Lala Gresham [facility] 04/20/2022 12:31:38 02/12/20 20 [id number]-[id number] completed MICHELLE JACOME MD [address], [place], [address], [facility] 02/12/2020 12:44:07 06/10/19 20 Cataract Surgery completed Lala Gresham [facility] 04/20/2022 12:31:38 02/01/20 18 [id number]-AQMITXC completed MICHELLE JACOME MD [address], [place], [address], [facility] 01/31/2018 13:18:47 11/13/19 17 Z5H-ADA completed MICHELLE JACOME MD [address], [place], [address], [facility] 11/12/2016 11:15:36 11/13/19 17 O5J-LEV completed MICHELLE JACOME MD [address], [place], [address], [facility] 11/12/2016 11:15:32 11/13/19 17 C7R-FCZWUUF completed MICHELLE JACOME MD [address], [place], [address], [facility] - [facility] 11/12/2016 11:15:25 11/13/19 17 X2C-USTFEL completed MICHELLE JACOME MD [address], [place], [address], [facility] - [facility] 11/12/2016 11:15:41 11/13/19 17 O9H-[id number] completed MICHELLE JACOME MD [address], [place], [address], [facility] - [facility] 11/12/2016 11:15:28 11/13/19 17 Date of Last Pap Smear completed Page Davenport [facility] 01/31/2018 11:50:49 07/25/19 16 S7Q-JPHEF completed MICHELLE JACOME MD [address], [place], [address], [facility] 07/25/2015 11:19:33 07/25/19 16 O5A-ZUXNEM completed MICHELLE JACOME MD [address], [place], [address], [facility] - [facility] 07/25/2015 11:19:33 07/25/19 16 B1N-TDW completed MICHELLE JACOME MD [address], [place], [address], [facility] 07/25/2015 11:19:33 07/25/19 16 X1B-JJTYUSU completed MICHELLE JACOME MD [address], [place], [address], [facility] - [facility] 07/25/2015 11:19:33 07/25/19 16 [id number]-[id number] completed MICHELLE JACOME MD [address], [place], [address], [facility] 07/25/2015 11:19:33 Tonsillectomy completed Page Davenport [place] [...] Name and Address Organization Details Recorded Time [id number] amoxicill in trihydrat e medicatio n Not available Not available Not available 10/02/20142007 61191 8 Rx[facility] Available [facility] 5 14:39:44 532994 Ceclor medicatio n Not available Not available Not available 11/12/201618010 5 RxNorm Page Davenport null, [place] [...] Available Not Available Not Available Fluzone High-Dose 2808-0820 (PF) 180 mcg/0.5 mL intramusc ular syringe 02/11 completed Not Available Not Available Not Available Plenvu 140 gram-9 gram-5.2 gram powder packs USE DIRECTED PER PACKAGE INSTRUCT IONS 04/20 completed Not Available Not Available Not Available Fluad 2018- 65yr up(PF)45 mcg(15 mcgx3)/0. 5 mL intramusc ular syringe 02/11 completed Not Available Not Available Not Available Fluad Quad 1712-8793 (65yr up)(PF) 60 mcg (15 mcg x 4)/0.5mL IM syringe 04/20 completed Not Available Not Available Not Available Vitals Date Recorded Body height Body weight Body mass index (BMI) Systolic blood pressure Diastolic blood pressure Provider Name and Address Organization Details Last Updated DateTime 07/25/2015 157.48 cm 75063.07 238 g 31.8 kg/m2 120 mm[Hg] 74 mm[Hg] Lala Gresham [facility] 6 10:02:03 Date Recorded Body height Body weight Body mass index (BMI) Systolic blood pressure Diastolic blood pressure Provider Name and Address Organization Details Last Updated DateTime 11/12/2016 157.48 cm 35542.63 g 32.9 kg/m2 162 mm[Hg] 82 mm[Hg] Page Davenport [facility] 7 10:32:03 Date Recorded Body height Body mass index (BMI) Body weight Systolic blood pressure Diastolic blood pressure Provider Name and Address Organization Details Last Updated DateTime 01/31/2018 157.48 cm 33.3 kg/m2 13557.81 g 154 mm[Hg] 93 mm[Hg] TRIAGE_MA O3 [address] [facility], [address], [place], [address], [facility] 8 12:04:24 Date Recorded Body height Body mass index (BMI) Body weight Body temperature Systolic blood pressure Diastolic blood pressure Provider Name and Address Organization Details Last Updated DateTime 0 157.48 cm 33.7 kg/m2 24935 g 98.4 [degF] 132 mm[Hg] 86 mm[Hg] Lala Gresham [facility] 0 11:56:36 Date Recorded Body height Body mass index (BMI) Body weight Systolic blood pressure Diastolic blood pressure Provider Name and Address Organization Details Last Updated DateTime 04/20/2022 157.48 cm 28.7 kg/m2 86577 g 169 mm[Hg] 82 mm[Hg] Lala Gresham [place] - [facility] 12:42:19 Social History Question Answer Notes LastModified by Organizat ion Details LastModified Time Tobacco Smoking Status Former Smoker TRIAGE_[email or web address] [address] [facility], [address], [place], [address], [facility] - [facility] 01/31/2018 11:56:01 What Is Your Level Of Alcohol Consumption? Moderate Information not available 01/31/2018 Concerns About Meeting Basic Needs (food, Housing, Heat, Etc)? No Information not available 04/20/2022 Education 2 Year College Information not available 04/20/2022 What Is The Highest Grade Or Level Of School You Have Completed Or The Highest Degree You Have Received? [id number] Information not available 04/20/2022 Do You Have [...] Anxious, Or Unable To Sleep At Night)? [id number] Information not available 04/20/2022 Have You Recently [...] Diagnosis/Indication Diagnosis SNOMED-CT Code Diagnosis ICD10 Code Diagnosis Note [id number] MICHELLE JACOME MD MAO4 [address] [facility] [place] [address] 07/25/2015 09:48:19 07/25/2015 15:26:26 Gynecologic examination 15845231 Z01.419 Screening mammography 24 635365 Z12.31 [id number] MICHELLE JACOME MD MAO3 [address] [address] 11/12/2016 09:44:45 11/14/2016 11:34:13 Gynecologic examination 13245886 Z01.419 Screening mammography 24 499474 Z12.31 [id number] MD AURORA MANCIA [address] [address] 01/31/2018 11:30:27 02/03/2018 10:38:38 Gynecologic examination 17657773 Z01.419 Screening mammography 24 617491 Z12.31 [id number] MD AURORA MANCIA [address] [address] 02/12/2020 11:42:23 02/16/2020 10:13:39 Gynecologic examination 84023815 Z01.419 Screening mammography 24 013330 Z12.31 [id number] MICHELLE JACOME MD MAOAzalia [address] [address] 04/20/2022 12:06:51 04/23/2022 13:57:32 Gynecologic examination 87270751 Z01.419 Screening mammography 24 269659 Z12.31 Health Concerns Section Related Observation LastModified by Organization Detai ls LastModified Time None Recorded Concern Status LastModified by Organization Details LastModified Time None Recorded Advance Directives Directive None Recorded Payers Encounter Date Sequence Insurance Name Policy Number Policy Partida Covered Member ID Partida Member ID Guarantor Name 07/25/2015 1 [place]ICARE [place]: NGS Yamel E [place] [id number] Yamel E [place] 07/25/2015 1 [place] BC[place]) [id number] Connor Braun [id number] Yamel E [place] 11/12/2016 1 [place]: NGS Yamel E [place] [id number] Yamel E [place] 11/12/2016 1 [place] [id number] Connor Braun [id number] Yamel E [place] 01/31/[address] [facility] (MEDICARE REPLACEMENT/A DVANTAGE - PPO) [id number] Yaeml Goodman [place] [id number] Yamel E [place] 02/12/[address] [facility] (MEDICARE REPLACEMENT/A DVANTAGE - PPO) [id number] Yamel Goodman [place] [id number] Yamel E [place] 04/20/[address] [facility] (MEDICARE REPLACEMENT/A DVANTAGE - PPO) [id number] Yamel E [place] [id number] Yamel Braun Notes Date Note Type Note Provider Name and Address Organization Details Recorded Time 07/25/2015 text/html [facility] Annual GYNReported bypatient.History: no gynecologic complaints Urinary symptoms:No hematuria; No incontinence Vulva:No genital lesion Vagina:Normal vaginal discharge Breast:No breast pain; No breast lump; No nipple discharge Menopausal Symptoms:No menopausal symptoms; Normal vaginal lubrication Psychological symptoms:No depression; No anxiety Preventive measures:Encourage self breast examination; Encourage regular exercise; Mammogram performed within the past year MICHELLE JACOME MD [address] [place] [address] 07/25/2015 11:20:00 11/12/2016 text/html [facility] Annual GYNReported bypatient.History: no gynecologic complaints [...] colonoscopy screening; DEXA needs to schedule MICHELLE JACOME MD [address] [place] [address] 11/12/2016 11:57:19 01/31/2018 text/html [facility] Annual GYNReported bypatient.History: no gynecologic complaints Urinary symptoms:No hematuria; No incontinence Vulva:No genital lesion Vagina:Normal vaginal discharge Breast:No breast pain; No breast lump; No nipple discharge Menopausal symptoms:No menopausal symptoms; Normal vaginal lubrication Psychological symptoms:No depression; No anxiety Preventive measures:Encourage self breast examination; Encourage regular exercise; Mammogram performed within the past year MICHELLE JACOME MD [address], [address], [facility] 01/31/2018 13:19:53 02/12/2020 text/html [facility] Annual GYNReported bypatient.History: no gynecologic complaints Urinary symptoms:No hematuria; No incontinence Vulva:No genital lesion Vagina:Normal vaginal discharge Breast:No breast pain; No breast lump; No nipple discharge Menopausal symptoms:No menopausal symptoms; Normal vaginal lubrication Psychological symptoms:No depression; No anxiety Preventive measures:Encourage self breast examination; Encourage regular exercise; Mammogram performed within the past year; Up to date on colonoscopy screening MICHELLE JACOME MD [address], [address], [facility] 02/12/2020 12:44:41 04/20/2022 text/html [facility] Annual GYNReported bypatient.History: no gynecologic complaints [...] a hip replacement. MICHELLE JACOME MD [address], [address], [facility] 04/20/2022 13:18:58 OBGyn Episode No OBEpisode recorded.
--- OUTSIDE RECORDS SUMMARY | 2024-09-22 13:53 | XMS_ITS | Clinical Summary ---
Author Organization Formerly [facility] Address [address] [place] [address] Care Team Providers Care Rn Otolaryngology Name Role Phone Tahir Ceja MD Primary Care Provider + [phone] Allergies Active Allergy Reactions Criticality Noted Date Comments Bee Venom Swelling Medium 06/08/2021 Cefaclor Rash/Dermatitis Low 06/08/2021 Medications Medication Sig Dispensed Refills Start Date End Date Status amLODIPine (NORVASC) 5 MG tablet Take 5 mg by mouth daily. 04/26/2021 Active ibandronate (BONIVA) 150 MG tablet TAKE 1 TABLET BY MOUTH EVERY MONTH ON THE SAME DAY 04/18/2021 Active estradiol (Estring) 2 MG vaginal ring Estring 2 mg (7.5 mcg/24 hour) vaginal ring INSERT 1 RING VAGINALLY EVERY 3 MONTHS Active sodium-potassium- magnesium sulfates (Suprep Bowel Prep Kit) 17.5-3.13-1.6 GM/177ML Solution solutionIndicatio ns:Hx of adenomatous colonic polyps Take 177 mL by mouth twice daily (every 12 hours). 2 each 01/27/2022 Active bisacodyl (DULCOLAX) 5 MG EC tablet bisacodyl 5 mg tablet,delayed release TAKE DIRECTED BY MD OFFICE PREPROCEDURE Active Euthyrox 50 MCG tablet Take 50 mcg by mouth daily. 11/23/2021 Active Olopatadine HCl (PATADAY) 0.2 % Solution ophthalmic solution olopatadine 0.2 % eye drops INSTILL 1 DROP BOTH EYES EVERY MORNING Active OMEprazole (PriLOSEC) 40 MG capsule omeprazole 40 mg capsule,delayed release Acti ve polyethylene glycol (miraLAx) 17 GM/SCOOP powder polyethylene glycol 3350 17 gram/dose oral powder MIX 17GM DIRECTED IN 8 OZ OF WATER AND TAKE ONCE DAILY FOR 7 DAYS PRIOR TO COLONOSCOPY Active hydrochlorothiazi de (HYDRODIURIL) 25 MG tablet hydrochlorothiazide 25 mg tablet TAKE 1 TABLET BY MOUTH EVERY DAY 06/07/2021 Active Active Problems No known active problems Social History Tobacco Use Types Packs/Day Years Used Date Smoking Tobacco: Former Smokeless Tobacco: Never Alcohol Use Standard Drinks/Week Comments Yes 14 (1 standard drink = 0.6 oz pu re alcohol) Sex and Gender Information Value Date Recorded Sex Assigned at Not on file Gender Identity Not on file Sexual Orientation Not on file Last Filed Vital Signs Vital Sign Reading Time Taken Comments Blood Pressure 134/66 02/08/2022 3:30 PM EDT Pulse 68 02/08/2022 3:30 PM EDT Temperature 35.6 ??C (96 ??F) 02/08/2022 3:30 PM EDT Respiratory Rate 32 02/08/2022 3:30 PM EDT Oxygen Saturation 98% 02/08/2022 3:30 PM EDT Inhaled Oxygen Concentration - - Weight 75.8 kg (167 lb) 02/06/2022 8:25 AM EDT Height 157.5 cm (5' 2 ) 02/06/2022 8:25 AM EDT Body Mass Index 30.54 02/06/2022 8:25 AM EDT Plan of Treatment Health Maintenance Due Date Last Done Comments Hepatitis C Virus Screening 1945 DTaP/Tdap/Td Vaccines (1 - Tdap) 11/19/1966 Pneumococcal Vaccines 50+ (1 of 1 - PCV) 11/19/1997 Zoster (Shingles) Vaccine (1 of 2) 11/19/1997 DXA Bone Density (Females,Ages 65 and older) 11/19/2012 RSV Vaccine 60 years and older and Patients (1 - 1-dose 75+ series) 11/19/2022 Influenza Vaccine 01/09/2024 02/03/2020 COVID-19 Vaccine ( - 2023- season) 2024 03/31/2021, 08/18/2020, 07/28/2020 Colonoscopy Discontinued 02/08/2022, 08/09/2021 Hepatitis B Vaccines Aged Out No long er eligible based on patient's age to complete this topic Care Teams Rn Otolaryngology Relationship Specialty Start Date End Date Tahir Ceja MD [address] [place] [id number] PCP - General Internal Medicine 02/22/21
--- OUTSIDE RECORDS SUMMARY | 2024-09-22 13:53 | XMS_ITS | Clinical Summary ---
Author Organization [facility] Address [address] [place] [address] Care Team Providers Care Musical Performer Name Role Phone Tahir Ceja MD Primary Care Provider [phone]- [phone] Allergies Active Allergy Reactions Criticality Noted Date Comments Amoxicillin Other (See Comments) Low 2007 PT DENIES Bee Sting Swelling Low 01/23/2021 LOCALIZED Cefaclor Rash Low 01/23/2021 Medications Medication Sig Dispensed Refills Start Date End Date Status omeprazole (PriLOSEC) 40 MG capsule Take 40 mg by mouth daily. 0 Active ibandronate (BONIVA) 150 MG tablet Take 150 mg by mouth every 30 (thirty) days. Take in AM with glass of water prior to food, don't lie down for 30 minutes. Q FIRST OF MONTH 0 Active estradiol (Estring) [address] 2 mg vaginally every 3 (three) months. follow package directions 0 Active CALCIUM-VITAMIN D PO Take 1 tablet by mouth daily. 0 Active Multiple Vitamin (MULTIVITAMIN PO) Take 1 tablet by mouth daily. 0 Active amLODIPine (NORVASC) tablet 5 mg Take 5 mg by mouth daily. 0 04/26/2021 Active hydroCHLOROthiazid e (HYDRODIURIL) tablet 25 mg Take 25 mg by mouth daily. 0 06/07/2021 Active levothyroxine (SYNTHROID) tablet 50 mcg Take 50 mcg by mouth daily. 0 06/08/2021 Active Psyllium (METAMUCIL FIBER PO) Take 1 Dose by mouth every evening. 0 Active Olopatadine HCl (PATADAY) 0.2 % ophthalmic solution Place 1 drop into both eyes daily. 0 Active acetaminophen (TYLENOL EXTRA STRENGTH) 500 MG tablet Take 2 tablets (1,000 mg total) by mouth every 8 (eight) hours. 40 tablet 0 08/25/2021 Active oxyCODONE (ROXICODONE) 5 MG immediate release tablet Take 1-2 tablets (5-10 mg total) by mouth every 4 (four) hours as needed. 40 tablet 0 08/25/2021 Active senna-docusate (PERICOLACE) 8.6-50 MG Take 1 tablet by mouth 2 (two) times a day. 30 tablet 0 08/25/2021 Active sulfamethoxazole-t rimethoprim (Bactrim DS) 800-160 MG per tablet Take 1 tablet (160 mg of trimethoprim total) by mouth 2 (two) times a day. 14 tablet 0 08/27/2021 Active clindamycin (CLEOCIN) 300 MG capsule Take 2 capsules 1 hour prior to dental appointment 10 capsule 1 09/13/2021 Active meclizine (ANTIVERT) 25 MG tablet TAKE 1 TABLET BY MOUTH EVERY 6 TO 8 HOURS NEEDED 0 08/28/2021 Active methocarbamol (Robaxin-750) 750 MG tablet Take 1 tablet (750 mg total) by mouth every 8 (eight) hours as needed. 90 tablet 1 11/01/2021 Active Active Problems Problem Noted Date Diagnosed Date Chronic pain 03/17/2012 Benign essential hypertension 11/25/2008 Immunizations Name Administration Dates Next Due Covid-19 (Pfizer) Dilution Required 03/31/2021,0 08/18/2020,07/28/2020 Family History Medical History Relation Name Comments Early Brother Cirrhosis Father LIVER Arthritis Mother Heart disease Mother LEAKY VALVE Pneumonia Mother Thyroid disease Sister Relation Name Status Comments Brother (Age 39) MURDERED Father (Age 72) CIRRHOSIS Mother (Age 88) PNA Sister Alive Social History Tobacco Use Types Packs/Day Years Used Date Smoking Tobacco: Former Cigarettes 1 40 Q uit: 08/01/2011 Smokeless Tobacco: Never Alcohol Use Standard Drinks/Week Comments Yes 14 (1 standard drink = 0.6 oz pu re alcohol) Sex and Gender Information Value Date Recorded Sex Assigned at Female 08/01/2021 9:21 AM EST Gender Identity Female 08/01/2021 9:21 AM EST Sexual Orientation Straight 08/24/2021 5: 31 AM EDT Job Start Date Occupation Industry Not on file Not on file Not on file Last Filed Vital Signs Vital Sign Reading Time Taken Comments Blood Pressure 135/80 08/25/2021 8:49 AM EDT Pulse 74 08/25/2021 8:49 AM EDT Temperature 36.9 ??C (98.5 ??F) 08/25/2021 8:49 AM ED T Respiratory Rate 16 08/25/2021 8:49 AM EDT Oxygen Saturation 97% 08/25/2021 8:49 AM EDT Inhaled Oxygen Concentration - - Weight 84.8 kg (187 lb) 08/24/2021 5:45 AM EDT Height 157.5 cm (5' 2 ) 08/24/2021 5:44 AM EDT Body Mass Index 34.2 08/24/2021 5:44 AM EDT Plan of Treatment Health Maintenance Due Date Last Done Comments Hepatitis C Screening 1945 Lung Cancer Screening (Low Dose CT) 1947 Depression Screening 1959 BMI Counseling 11/19/1965 Preventative Health Evaluation 11/19/1965 DTap / Tdap / Td (1 - Tdap) 11/19/1966 Shingrix-Zoster Vaccine (1 o f 2) 11/19/1997 Fall Risk Assessment 11/19/2012 Osteoporosis Screening (DEXA Scan) 11/19/2012 Pneumococcal Vaccine (1 of 1 - PCV) 11/19/2012 RSV Adult > 60+ Yrs or (1 - 1-dose 75+ series) 11/19/2022 COVID-19 Vaccine (4 - 2023-2 5 season) 2024 03/31/2021, 08/18/2020, 07/28/2020 Influenza Vaccine (#1) 2024 Hepatitis B Vaccines Aged Out No long er eligible based on patient's age to complete this topic RSV Ped < 20 months Aged Out No longe r eligible based on patient's age to complete this topic Medical Devices Implanted Type Area Roll Inspector Device Identifier Shelf Expiration Date Model / Serial / Lot Impl Set Bead 2.0mm Jessy Nuñez [id number] 128 - [id number] Implanted:Qty: 1 on 08/24/2021 by Konrad Gil MD at [facility] Left: Hip [employer] [id number] 07/18/2026 6704-0-520 / / [id number] Hip Insrt X3 10deg 32mm Szd Stry-Howm [id number] 819 - [id number] Implanted:Qty: 1 on 08/24/2021 by Konrad Gil MD at [facility] Left: Hip [employer] [id number] 10/21/2022 623-10-32D / / [id number] Lp Hex Screw 6.5x20mm Stry-Howm [id number] 57 - [id number] Implanted:Qty: 1 on 08/24/2021 by Konrad Gil MD at [facility] Left: Hip [employer] [id number] 04/03/2026 3182-1062 / / [id number] Tritanium Cluster Hole Shell 48mm Stry-Howm 310-35-30p-772 451 - [id number] Implanted:Qty: 1 on 08/24/2021 by Konrad Gil MD at [facility] Left: Hip [employer] [id number] 04/27/2026 702-04-48D / / [id number] Lp Hex Screw 6.5x25mm Stry-Howm [id number] 58 - [id number] Implanted:Qty: 1 on 08/24/2021 by Konrad Gil MD at [facility] Left: Hip [employer] [facility] [id number] 09/29/2025 2807-6300 / / [id number] Size 4 Accolade Ii 127 Deg Stry-Howm [id number] 76 - [id number] Implanted:Qty: 1 on 08/24/2021 by Konrad Gil MD at [facility] Left: Hip [employer] [id number] 07/18/2026 3881-0059 / / [id number] Hip Head Delta 32mm -4 Stry-Howm [id number] 879 - [id number] Implanted:Qty: 1 on 08/24/2021 by Konrad Gil MD at [facility] Left: Hip [employer] [id number] 08/28/2025 6570-0-032 / / [id number] Advance Directives For more information, please contact: [phone] Latest Code Status on File Code Status Date Activated Date Inactivated Comments Full Code 08/24/2021 9:50 AM 08/25/2021 6:37 PM This code status was ascertained in the following way: discussion with patient . Code Status History Code Status Date Activated Date Inactivated Comments Full Code 08/24/2021 5:23 AM 08/24/2021 9:50 AM This code status was ascertained in the following way: discussion with patient . Care Teams Musical Performer Relationship Specialty Start Date End Date Tahir Ceja MD [address] [place] [address] PCP - General Internal Medicine 01/09/21
--- OUTSIDE RECORDS SUMMARY | 2024-09-22 13:54 | XMS_ITS ---
Author Name [facility] Organization Unknown Results Test Name/Text Value Interpretation Date Range Source T4 FREE 1.59ng/dL Normal [id number] 0.89 - 1.76 [facility] LDL 117mg/dL Normal [id number] - 160 [facility] TRIGLYCERIDE WITH LDLD REFLEX 116mg/dL Normal [id number] - 150 [facility] CHOLESTEROL 220mg/dL Above high normal [id number] - 200 [facility] HDL 80mg/dL Above high normal [id number] 40 - 60 [facility] TSH WITH REFLEX T4 FREE 4.67uIU/mL Normal [id number] 0.55 - 4.78 [facility] PATIENT FASTING? YES Normal [id number] [facility] T4 FREE 1.42ng/dL Normal [id number] 0.89 - 1.76 [facility] LDL 116mg/dL Normal [id number] - 160 [facility] TRIGLYCERIDE WITH LDLD REFLEX 139mg/dL Normal [id number] - 150 [facility] CHOLESTEROL 227mg/dL Above high normal [id number] - 200 [facility] HDL 83mg/dL Above high normal [id number] 40 - 60 [facility] TSH WITH REFLEX T4 FREE 4.86 Above high normal [id number] 0.55 - 4.78 [facility] PATIENT FASTING? 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 Primary Care 05/15/2024 [place], Primary [facility] 10/04/2023 [facility] [place], Primary Care 10/04/2023 [facility] [employer] 08/13/2023 11/10/2023 [facility] CCDA 023 [facility] ADT 01/19/20 23 [facility], [facility] 04/23/2022 [facility] 04/20/2022 04/20/2022 [facility] Ceja in Primary Care 02/08/2022 [employer] [facility] KULDIP CEJA, Primary Care 08/09/2021 02/08/2022 [facility] 02/24/2021 01/27/2024
--- OUTSIDE RECORDS SUMMARY | 2024-09-22 13:54 | XMS_ITS | Clinical Summary ---
Author Organization [facility] Address [address] [place] [address] Care Team Providers Care Paper Folder Name Role Phone Tahir Ceja MD Primary Care Provider +1- [phone] Surgical History Surgery Date Site/Laterality Comments TONSILLECTOMY PROCEDURE:TONSILLECTOMY APPENDECTOMY PROCEDURE:APPENDECTOMY COLONOSCOPY 2000,2011,2016 PROCEDURE:COLONOSCOPY UPPER GASTROINTESTINAL ENDOSCOPY 2016 PROCEDURE:UPPER GASTROINTESTINAL ENDOSCOPY CATARACT EXTRACTION, BILATERAL Bilateral PROCEDURE:CATARACT EXTRACTION, BILATERAL BREAST SURGERY Left PROCEDURE:BREAST SURGERY;COMMENT:LUMPECTOMY- BIOPSY NEG TOTAL HIP ARTHROPLASTY 08/24/2021 Left PROCEDURE:TOTAL HIP ARTHROPLASTY;COMMENT:Proced ure: REPLACEMENT TOTAL HIP; Surgeon: Konrad Gil MD; [facility] Service: Orthopedics; Laterality: Left; JOINT REPLACEMENT PROCEDURE:JOINT REPLACEMENT Medical History Medical History Date Comments GERD (gastroesophageal reflux disease) DX:GERD (gastroesophageal reflux disease) Osteoporosis DX:Osteoporosis Hypertension DX:Hypertension Spinal stenosis DX:Spinal stenos is Colon polyp 2011 DX:Colon polyp;C OMMENT:3 polyps 1 p/c Colon polyp 2016 DX:Colon polyp;C OMMENT:benigh polyps Osteoarthritis DX:Osteoarthriti s Francis esophagus DX:Francis eso phagus Hypothyroidism DX:Hypothyroidis m COVID-19 vaccine administered DX :COVID-19 vaccine administered;COMMENT:PFIZER 07/28/20, 08/18/20, 03/31/21 Hiatal hernia DX:Hiatal hernia History of staph infection 1981 DX:Hi story of staph infection;COMMENT:ABSCESS RIGHT BREAST AND RIGHT ARM- DRAINED AND RESOLVED Family History Medical History Relation Name Comments Early Brother Cirrhosis Father LIVER Arthritis Mother Heart disease Mother LEAKY VALVE Pneumonia Mother Thyroid disease Sister Relation Name Status Comments Brother (Age 39) MURDERED Father (Age 72) CIRRHOSIS Mother (Age 88) PNA Sister Alive Social History Tobacco Use Types Packs/Day Years Used Date Smoking Tobacco: Former Cigarettes Q uit: 08/01/2011 Smokeless Tobacco: Never Alcohol Use Standard Drinks/Week Comments Yes 14 (1 standard drink = 0.6 oz pu re alcohol) Comments Unknown Sex and Gender Information Value Date Recorded Sex Assigned at Not on file Legal Sex Female 5:33 AM EST Gender Identity Not on file Sexual Orientation Not on file Obstetrics History Last Filed Vital Signs Vital Sign Reading Time Taken Comments Blood Pressure 157/87 08/14/2021 9:33 AM EST Sitting Left arm Pulse 79 08/14/2021 9:33 AM EST Temperature - - Respiratory Rate - - Oxygen Saturation - - Inhaled Oxygen Concentration - - Weight 83.5 kg (184 lb) 08/14/2021 9:33 AM EST Height 157 cm (5' 1.81 ) 08/14/2021 9:3 3 AM EST Body Mass Index 33.86 08/14/2021 9:33 AM EST Plan of Treatment Health Maintenance Due Date Last Done Comments DTaP,Tdap,and Td Vaccines (1 - Tdap) 11/19/1966 Pneumococcal Vaccine: 50+ Years (1 of 1 - PCV) 11/19/1997 Zoster Vaccines (1 of 2) 11/19/1997 Cholesterol Screening (Lipid Panel) 05/17/2022 Depression Screening 05/17/2022 Falls Risk Assessment 05/17/2022 Hepatitis C Screening 05/17/2022 Lung Cancer Screening (Low Dose CT) 05/17/2022 Osteoporosis Screening (Bone Density Screening) 05/17/2022 Social Influencers of Health Screening 05/17/2022 Hypertension/CHF/CAD Annual BMP Blood Test 05/19/2022 RSV Immunization Adult Patients (1 - 1-dose 75+ series) 11/19/2022 COVID-19 Vaccine (2023-2 5 season) 2024 03/31/2021, 08/18/2020, 07/28/2020 Influenza Vaccine (Season Ended) 2025 HIB Vaccines Aged Out No longer eligi ble based on patient's age to complete this topic HPV Vaccines Aged Out No longer eligi ble based on patient's age to complete this topic Hepatitis A Vaccines Aged Out No long er eligible based on patient's age to complete this topic Hepatitis B Vaccines Aged Out No long er eligible based on patient's age to complete this topic IPV Vaccines Aged Out No longer eligi ble based on patient's age to complete this topic MMR Vaccines Aged Out No longer eligi ble based on patient's age to complete this topic Meningococcal ACWY Vaccine Aged Out N o longer eligible based on patient's age to complete this topic Meningococcal B Vaccine Aged Out No l onger eligible based on patient's age to complete this topic RSV Immunization Patients Under 20 months Aged Out No longer eligible b ased on patient's age to complete this topic Varicella Vaccines Aged Out No longer eligible based on patient's age to complete this topic Medical Devices Implanted Type Area In Store Marketing Associate Device Identifier Shelf Expiration Date Model / Serial / Lot Impl Set Bead 2.0mm Vit Gerardo Alber Stry-Howm [id number] 128 Implanted:Qty: 1 on 08/24/2021 by Konrad Gil MD Left: Hip [employer] [id number] 07/18/2026 6704-0-520 / / [id number] Hip Insrt X3 10deg 32mm Szd Stry-Howm [id number] 819 Implanted:Qty: 1 on 08/24/2021 by Konrad Gil MD Left: Hip [employer] [id number] 10/21/2022 623-10-32D / / [id number] Lp Hex Screw 6.5x20mm Stry-How [id number] 57 Implanted:Qty: 1 on 08/24/2021 by Konrad Gil MD Left: Hip [employer] [id number] 04/03/2026 4345-6737 / / [id number] Tritanium Cluster Hole Shell 48mm Stry-Howm 648-66-45c-772 451 Implanted:Qty: 1 on 08/24/2021 by Konrad Gil MD Left: Hip [employer] [id number] 04/27/2026 702-04-48D / / [id number] Lp Hex Screw 6.5x25mm Stry-Howm 3542-5783-8601 58 Implanted:Qty: 1 on 08/24/2021 by Konrad Gil MD Left: Hip [employer] [id number] 09/29/2025 6130-2541 / / [id number] Size 4 Accolade Ii 127 Deg Stry-imbookin ([employer]) [id number] 76 Implanted:Qty: 1 on 08/24/2021 by Konrad Gil MD Left: Hip [employer] [id number] 07/18/2026 3336-2772 / / [id number] Hip Head Delta 32mm -4 StrAdvestigo-imbookin ([employer]) [id number] 879 Implanted:Qty: 1 on 08/24/2021 by Konrad Gil MD Left: Hip [employer] [id number] 08/28/2025 6570-0-032 / / [id number] Care Teams Paper Folder Relationship Specialty Start Date End Date Tahir Ceja MD [address] [place] [id number] PCP - General Internal Medicine 01/09/21
== END 2024-09-22 11:44 | disposition home or self-care (01) ==
LOC: HO.HOS 11:15
PROVIDERS: PCP Internal Medicine; Visit Provider Orthopaedic Surgery
DX: M17.0 Bilateral primary osteoarthritis of knee (principal)
CPT/HCPCS: 99213; G2211

== ENCOUNTER 2024-09-22 11:21 | Outpatient (REF) | payer MEDICARE, SELFPAY | END 2024-09-22 11:22 | disposition home or self-care (01) | LOC: HO.HOSX 11:21 | PROVIDERS: Visit Provider Orthopaedic Surgery | DX: M17.0 Bilateral primary osteoarthritis of knee (principal); M25.561 Pain in right knee; M25.562 Pain in left knee | CPT/HCPCS: 99212 ==

== ENCOUNTER 2024-11-17 09:13 | Outpatient (AMB) | payer MEDICARE, SELFPAY ==
--- NOTE | 2024-11-17 09:17 | MHC.OFFVIS ---
Vital Signs 11/17/24 09:20 Height 5 ft 2 in Weight 175 lb BMI 32.0 Intake Visit Reasons: Inj-Bilateral Knee Synvisc-One Intake Note: Yamel is a 78 year old female who presents with complaints of bilateral knee pains. She describes her pains as sharp in nature. She has had cortisone injections in the past which gave her no relief. She has also had viscosupplementation injections which gave her fairly good relief. She has done physical therapy exercises which aggravated her pain. She has also tried Tylenol and anti-inflammatory medicines which gave her minimal relief. She wishes to hold off on total knee replacement surgery if at all possible. Allergies zeclar Allergy (Mild, Uncoded 11/17/24 09:20) Hives Medication List - Last Reconciled 11/17/24 by Konrad Gil MD amlodipine 5 mg PO DAILY estradiol (Estring) 1 vag ring vaginal [id number] hydrochlorothiazide 25 mg PO DAILY ibandronate mg PO levothyroxine 75 mcg PO DAILY omeprazole 40 mg PO DAILY oxycodone 5 mg PO Q24H PRN PFSH Social History Current occupational status: retired Current occupation: rt handed Physical Exam Vital Signs: BMI result Body Mass Index 32.0 Const Other: Well-nourished well-developed very friendly female awake alert and oriented x3 in no acute distress Extrem Other: Bilateral lower extremity examination shows good capillary refill, no skin lesions noted, normal sensation light touch Bilateral knee examination shows minimal effusions, palpable crepitus with range of motion, pain with range of motion, no instability Office Procedures AMB Joint Injection/Aspiration Joint Injection/Aspiration Primary Site: left knee Prep: site was prepped using aseptic technique Injected: 1% plain lidocaine and other (48 mg of Synvisc-One viscosupplementation) Procedure: The patient tolerated the procedure well Coding 48217 - Large joint Procedure code (CPT) selection complete AMB Joint Injection/Aspiration Joint Injection/Aspiration Primary Site: right knee Injected: 1% plain lidocaine and other (48 mg of Synvisc-One viscosupplementation) Procedure: The patient tolerated the procedure well Coding 95960 - Large joint Procedure code (CPT) selection complete Results Reviewed Results Reviewed: X-rays of the patient's bilateral knee show joint space narrowing, subchondral sclerosis, no acute bony abnormalities Assessment & Plan Assessment & Plan (1) Osteoarthritis of left knee: Code(s): M17.12 - Unilateral primary osteoarthritis, left knee Category: Medical (2) Osteoarthritis of right knee: Code(s): M17.11 - Unilateral primary osteoarthritis, right knee Category: Medical Plan Ms. Braun presents with bilateral knee pains due to osteoarthritis. The risks and benefits of bilateral knee Synvisc-One viscosupplementation injections were discussed at length with the patient. The patient wished to proceed. She tolerated the injections well. She will continue with her home exercise program. She will contact me prior to her follow-up appointment in 3 months should any questions or concerns arise. Feel free to call me at any time should questions regarding her orthopedic management arise. I spent 20 minutes in reviewing the patient's records and imaging studies, seeing the patient and documenting in the medical record. Orders: Orders AMB Joint Injection/Aspiration Today M17.12 - Unilateral primary osteoarthritis, left knee AMB Joint Injection/Aspiration Today M17.11 - Unilateral primary osteoarthritis, right knee Coding Level of Care Code Est Pt Level 3 (86479) Complex EM visit Add On G2211 Diagnoses Osteoarthritis of left knee M17.12 Osteoarthritis of right knee M17.11 CPT Codes Coding - 79576 Large joint: 32411 - Large joint ([id number]) Coding - 36241 Large joint: 82403 - Large joint ([id number])
[2024-11-17 09:20] VITALS: BMI 32.0
--- OUTSIDE RECORDS SUMMARY | 2024-11-17 09:58 | XMS_ITS | Encounter Summary ---
Author Organization [facility] Address [address] [place] [address] Care Team Providers Care Cinder Worker Name Role Phone Tahir Ceja MD Primary Care Provider +1 [phone] Encounter Details Date Type Department Care Team (Late st Contact Info) Description 08/09/2021 Scanned Document [facility] [address] [place] [address] [place] [address] Winston Brand MD [address] [facility] [place] [address] Social History Tobacco Use Types Packs/Day Years Used Date Smoking Tobacco: Former Smokeless Tobacco: Never Alcohol Use Standard Drinks/Week Comments Yes 14 (1 standard drink = 0.6 oz pu re alcohol) Comments No Sex and Gender Information Value Date Recorded Sex Assigned at Not on file Legal Sex Female 3:10 PM EDT Gender Identity Not on file Sexual Orientation [...] to be removed by advanced endoscopist at [facility]. Let me know if patient agrees and this procedure can be set up. 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 Repeat endoscopy is recommended in 3 years. The polyp should be removed in the next 3 to 6 months. * Wintson Brand MD - 08/09/2021 1:41 PM EST [...] * PATHOLOGY REPORT (08/09/2021 12:00 AM EST) us Winston Brand MD PATHOLOGY/CYTOLOGY ORDERABLES Final Result documented in this encounter Visit Diagnoses Not on filedocumented in this encounter Care Teams Cinder Worker Relationship Specialty Start Date End Date Tahir Ceja MD [address] [place] [address] PCP - General Internal Medicine 02/22/21 documented as of this encounter
== END 2024-11-17 09:58 | disposition home or self-care (01) ==
LOC: HO.HOS 09:13
PROVIDERS: PCP Internal Medicine; Visit Provider Orthopaedic Surgery
DX: M17.0 Bilateral primary osteoarthritis of knee (principal)
CPT/HCPCS: 20610; 99213

== ENCOUNTER → 2024-11-17 09:13 | Outpatient (BNVA) | payer MEDICARE, SELFPAY | PROVIDERS: PCP Internal Medicine; Visit Provider Orthopaedic Surgery | DX: M17.0 Bilateral primary osteoarthritis of knee (principal) | CPT/HCPCS: 20610; 99212; J2003; J7325 ==

== ENCOUNTER 2025-02-17 14:14 | Outpatient (AMB) | payer MEDICARE, SELFPAY ==
--- NOTE | 2025-02-17 14:17 | MHC.OFFVIS ---
Vital Signs 02/17/25 14:20 Height 5 ft 2 in Weight 150 lb BMI 27.4 Intake Visit Reasons: Bilateral knee pains Intake Note: Yamel is a 79 year old female who presents with bilateral knee pains. She describes her pains as sharp in nature. She has had cortisone injections in the past which gave her minimal relief. She also had bilateral knee Synvisc-One viscosupplementation injections earlier this year. Those injections gave her good relief. She has tried Tylenol and anti-inflammatory medicines which gave her only mild relief. At this point her bilateral knee pains are interfering with her activities of daily living and her ability to sleep well through the night. She has done physical therapy exercises which aggravated her pain. She wishes to hold off on total knee replacement surgery if at all possible. Allergies Seasonal Allergies Allergy (Intermediate, Verified 02/17/25 14:20) Watery Eye zeclar Allergy (Mild, Uncoded 11/17/24 09:20) Hives Medication List - Last Reconciled 02/17/25 by Konrad Gil MD amlodipine 5 mg PO DAILY estradiol (Estring) 1 vag ring vaginal [id number] hydrochlorothiazide 25 mg PO DAILY ibandronate mg PO levothyroxine 88 mcg PO DAILY omeprazole 40 mg PO DAILY PFSH Social History Current occupational status: retired Current occupation: rt handed Physical Exam Vital Signs: BMI result Body Mass Index 27.4 Const Other: Well-nourished well-developed very friendly female awake alert and oriented x3 in no acute distress Extrem Other: Bilateral knee examination shows minimal effusions, palpable crepitus with range of motion, pain with range of motion, no instability Results Reviewed Results Reviewed: X-rays of the patient's bilateral knees taken previously show space narrowing, subchondral sclerosis, no acute bony abnormalities Assessment & Plan Assessment & Plan (1) Osteoarthritis of left knee: Code(s): M17.12 - Unilateral primary osteoarthritis, left knee Category: Medical (2) Osteoarthritis of right knee: Code(s): M17.11 - Unilateral primary osteoarthritis, right knee Category: Medical Plan Ms. Braun presents with bilateral knee pains due to osteoarthritis. I had a lengthy discussion with the patient regarding the treatment options. She wishes to hold off on total knee replacement surgery if at all possible. I agree with this plan. I will see if the patient's insurance company will cover another Synvisc-One viscosupplementation injection for both of her knees. I will see her back once the injections are available. Feel free to call me at any time should questions regarding her orthopedic management arise. I spent 21 minutes in reviewing the patient's records and imaging studies, seeing the patient and documenting in the medical record. Coding Level of Care Code Est Pt Level 3 (48159) Complex EM visit Add On G2211 Diagnoses Osteoarthritis of left knee M17.12 Osteoarthritis of right knee M17.11
[2025-02-17 14:20] VITALS: BMI 27.4
--- OUTSIDE RECORDS SUMMARY | 2025-02-17 17:32 | XMS_ITS | Clinical Summary ---
Author Organization [facility] Address [address] [place] [address] Care Team Providers Care Chiropractic Doctor Name Role Phone Tahir Ceja MD Primary Care Provider [phone] Allergies Active Allergy Reactions Criticality Noted Date Comments Bee Venom Swelling Medium 06/08/2021 Cefaclor Rash/Dermatitis Low 06/08/2021 Medications amLODIPine (NORVASC) 5 MG tablet Take 5 mg by mouth daily. 04/26/20 21 Active ibandronate (BONIVA) 150 MG tablet TAKE 1 TABLET BY MOUTH EVERY MONTH ON THE SAME DAY 04/18/20 21 Active estradiol (Estring) 2 MG vaginal ring Estring 2 mg (7.5 mcg/24 hour) vaginal ring INSERT 1 RING VAGINALLY EVERY 3 MONTHS Active sodium-potassi um-magnesium sulfates (Suprep Bowel Prep Kit) 17.5-3.13-1.6 GM/177ML Solution solutionIndica tions:Hx of adenomatous colonic polyps Take 177 mL by mouth twice daily (every 12 hours). 2 each 01/28/20 22 Active bisacodyl (DULCOLAX) 5 MG EC tablet bisacodyl 5 mg tablet,delayed release TAKE DIRECTED BY MD OFFICE PREPROCEDURE Activ e Euthyrox 50 MCG tablet Take 50 mcg by mouth daily. 11/24/19 22 Active Olopatadine HCl (PATADAY) 0.2 % Solution ophthalmic solution olopatadine 0.2 % eye drops INSTILL 1 DROP BOTH EYES EVERY MORNING Active OMEprazole (PriLOSEC) 40 MG capsule omeprazole 40 mg capsule,delayed release Active polyethylene glycol (miraLAx) 17 GM/SCOOP powder polyethylene glycol 3350 17 gram/dose oral powder MIX 17GM DIRECTED IN 8 OZ OF WATER AND TAKE ONCE DAILY FOR 7 DAYS PRIOR TO COLONOSCOPY Active hydrochlorothi azide (HYDRODIURIL) 25 MG tablet hydrochlorothiazide 25 mg tablet TAKE 1 TABLET BY MOUTH EVERY DAY 06/07/20 21 Active Active Problems No known active problems [...] 68 02/08/2022 3:30 PM EDT Temperature 35.6 C (96 F) 02/08/2022 3:30 PM EDT Respiratory Rate 32 02/08/2022 3:30 PM EDT Oxygen Saturation 98% 02/08/2022 3:30 PM EDT Inhaled Oxygen Concentration - - Weight 75.8 kg (167 lb) 02/06/2022 8:25 AM EDT Height 157.5 cm (5' 2 ) 02/06/2022 8:25 AM EDT Body Mass Index 30.54 02/06/2022 8:25 AM EDT Plan of Treatment Health Maintenance Due Date Last Done Comments Advance Care Planning 1945 Hepatitis C Virus Screening 1945 DTaP/Tdap/Td Vaccines (1 - Tdap) 11/19/1966 Pneumococcal Vaccines 50+ (1 of 1 - PCV) 11/19/1997 Zoster (Shingles) Vaccine (1 of 2) 11/19/1997 DXA Bone Density (Females,Ages 65 and older) 11/19/2012 RSV Vaccine 60 years and older and Patients (1 - 1-dose 75+ series) 11/19/2022 COVID-19 Vaccine ( - season) 2024 03/31/2021, 08/18/2020, 07/28/2020 Influenza Vaccine 01/08/2025 02/03/2020 Colonoscopy Discontinued 02/08/2022, 08/09/2021 Hepatitis B Vaccines Aged Out No long er eligible based on patient's age to complete this topic Insurance MEDICARE MEDICARE Care Teams Chiropractic Doctor Relationship Specialty Start Date End Date Tahir Ceja MD [address] [place] [id number] PCP - General Internal Medicine 02/22/21
--- OUTSIDE RECORDS SUMMARY | 2025-02-17 17:32 | XMS_ITS | Clinical Summary ---
Author Organization [facility] Address [address] [place] [address] Care Team Providers Care Respiratory Care Assistant Name Role Phone Tahir Ceja MD Primary Care Provider [phone] Surgical History Surgery Date Site/Laterality Comments TONSILLECTOMY PROCEDURE:TONSILLECTOMY APPENDECTOMY PROCEDURE:APPENDECTOMY COLONOSCOPY 2000,2011,2016 PROCEDURE:COLONOSCOPY UPPER GASTROINTESTINAL ENDOSCOPY 2016 PROCEDURE:UPPER GASTROINTESTINAL ENDOSCOPY CATARACT EXTRACTION, BILATERAL Bilateral PROCEDURE:CATARACT EXTRACTION, BILATERAL BREAST SURGERY Left PROCEDURE:BREAST SURGERY;COMMENT:LUMPECTOMY- BIOPSY NEG TOTAL HIP ARTHROPLASTY 08/24/2021 Left PROCEDURE:TOTAL HIP ARTHROPLASTY;COMMENT:Proced ure: REPLACEMENT TOTAL HIP; Surgeon: Konrad Gil MD; Location: [facility] Service: Orthopedics; Laterality: [...] 2) 11/19/1997 Cholesterol Screening (Lipid Panel) 05/17/2022 Falls Risk Assessment 05/17/2022 Hepatitis C Screening 05/17/2022 Lung Cancer Screening (Low Dose CT) 05/17/2022 Osteoporosis Screening (Bone Density Screening) 05/17/2022 Social Influencers of Health Screening 05/17/2022 Hypertension/CHF/CAD Annual BMP Blood Test 05/19/2022 RSV Immunization Adult Patients (1 - 1-dose 75+ series) 11/19/2022 Depression Screening 06/10/2024 COVID-19 Vaccine ( - 2024-2 6 season) 2025 03/31/2021, 08/18/2020, 07/28/2020 Influenza Vaccine (#1) 2025 HIB Vaccines Aged Out No longer [...] this topic Medical Devices Implanted Type Area Nuclear Engineer Device Identifier Shelf Expiration Date Model / Serial / Lot Impl Set Bead 2.0mm Vit Gerardo Alber Stry-Howm [id number] Implanted:Qty: 1 on 08/24/2021 by Konrad Gil MD Left: Hip [employer] [id number] 07/18/2026 6704-0-520 / / [id number] Hip Insrt X3 10deg 32mm Szd Stry-Howm [id number] [id number] Implanted:Qty: 1 on 08/24/2021 by Konrad Gil MD Left: Hip [employer] [id number] 10/21/2022 623-10-32D / / [id number] Lp Hex Screw 6.5x20mm Stry-How [id number] 57 Implanted:Qty: 1 on 08/24/2021 by Konrad Gil MD Left: Hip [employer] [id number] 04/03/2026 4791-2761 / / [id number] Tritanium Cluster Hole Shell 48mm Stry-Howm [id number] 451 Implanted:Qty: 1 on 08/24/2021 by Konrad Gil MD Left: Hip [employer] [id number] 04/27/2026 702-04-48D / / [id number] Lp Hex Screw 6.5x25mm Stry-Howm [id number] 58 Implanted:Qty: 1 on 08/24/2021 by Konrad Gil MD Left: Hip [employer] [id number] 09/29/2025 8086-0620 / / [id number] Size 4 Accolade Ii 127 Deg Stry-[employer] [id number] 76 Implanted:Qty: 1 on 08/24/2021 by Konrad Gil MD Left: Hip [employer] [id number] 07/18/2026 0723-6753 / / [id number] Hip Head Delta 32mm -4 StrSapient[employer] [id number] 879 Implanted:Qty: 1 on 08/24/2021 by Konrad Gil MD Left: Hip [employer] [id number] 08/28/2025 6570-0-032 / / [id number] Care Teams Respiratory Care Assistant Relationship Specialty Start Date End Date Tahir Ceja MD [address] [place] [id number] PCP - General Internal Medicine 01/09/21
--- OUTSIDE RECORDS SUMMARY | 2025-02-17 17:32 | XMS_ITS | Encounter Summary ---
Author Organization [facility] Address [address] [place] [address] Care Team Providers Care Gin Inspector Name Role Phone Tahir Ceja MD Primary Care Provider +1 [phone] Encounter Details Date Type Department Care Team (Late st Contact Info) Description 08/09/2021 Scanned Document [facility] [address] [facility] [place] [address] [place] [address] Winston Brand MD [address] [facility] [place] [address] Social History Tobacco Use Types [...] to be removed by advanced endoscopist at [facility]. Let me know if patient agrees and [...] on filedocumented in this encounter Care Teams Gin Inspector Relationship Specialty Start Date End Date Tahir Ceja MD [address] [place] [address] PCP - General Internal Medicine 02/22/21 documented as of this encounter
--- OUTSIDE RECORDS SUMMARY | 2025-02-17 17:32 | XMS_ITS | Clinical Summary ---
Author Organization [facility] Address [address] [place] [address] Care Team Providers Care Supervisor [employer] Name Role Phone Tahir Ceja MD Primary Care Provider +1- [phone] Allergies Active Allergy Reactions Criticality Noted Date [...] 74 08/25/2021 8:49 AM EDT Temperature 36.9 C (98.5 F) 08/25/2021 8:49 AM EDT Respiratory Rate 16 08/25/2021 8:49 AM EDT [...] 75+ series) 11/19/2022 COVID-19 Vaccine (4 - 2024-2 6 season) 2025 03/31/2021, 08/18/2020, 07/28/2020 Influenza Vaccine (#1) 2025 Hepatitis B Vaccines Aged Out No long er eligible based on patient's age to complete this topic RSV Ped < 20 months Aged Out No longe r eligible based on patient's age to complete this topic Medical Devices Implanted Type Area Catalytic Converter Operator Helper Device Identifier Shelf Expiration Date Model / Serial / Lot Impl Set Bead 2.0mm Jessy Nuñez [id number] 128 - [id number] Implanted:Qty: 1 on 08/24/2021 by Konrad Gil MD at [facility] Left: Hip [employer] [id number] 07/18/2026 6704-0-520 / / [id number] Hip Insrt X3 10deg 32mm Szd Stry-Howm 604-88-27l-287 819 - [id number] Implanted:Qty: 1 on 08/24/2021 by Konrad Gil MD at [facility] Left: Hip [facility] [id number] 10/21/2022 623-10-32D / / [id number] Lp Hex Screw 6.5x20mm Stry-Howm [id number] 57 - [id number] Implanted:Qty: 1 on 08/24/2021 by Konrad Gil MD at [facility] Left: Hip [employer] [facility] [id number] 04/03/2026 2381-2096 / / [id number] Tritanium Cluster Hole Shell 48mm Stry-Howm 928-14-25n-772 451 - [id number] Implanted:Qty: 1 on 08/24/2021 by Konrad Gil MD at [facility] Left: Hip [employer] [id number] 04/27/2026 702-04-48D / / [id number] Lp Hex Screw 6.5x25mm Stry-Howm [id number] 58 - [id number] Implanted:Qty: 1 on 08/24/2021 by Konrad Gil MD at [facility] Left: Hip [employer] [id number] 09/29/2025 9972-5978 / / [id number] Size 4 Accolade Ii 127 Deg Stry-Howm 9845-5791-4994 76 - [id number] Implanted:Qty: 1 on 08/24/2021 by Konrad Gil MD at [facility] Left: Hip [employer] [id number] 07/18/2026 7329-7447 / / [id number] Hip Head Delta 32mm -4 Stry-Howm 4999-1-992-628 879 - [id number] Implanted:Qty: 1 on 08/24/2021 by Konrad Gil MD at [facility] Left: Hip [facility] [id number] 08/28/2025 6570-0-032 / / [id number] Advance Directives For more information, please contact: [phone] Latest Code Status on File Code Status [...] way: discussion with patient . Care Teams Supervisor [employer] Ware[employer] Relationship Specialty Start Date End Date Tahir Ceja MD [address] [place] [address] PCP - General Internal Medicine 01/09/21
--- OUTSIDE RECORDS SUMMARY | 2025-02-17 17:32 | XMS_ITS ---
Author Name [facility] Organization Unknown Results Test Name/Text Value Interpretation Date Range Source TSH WITH REFLEX T4 FREE 3.6 uIU/mL Normal 12/10/2024 0.55 - 4.78 [facility] LDL 144.0 mg/dL Normal 12/10/2024 - 160 [facility] CHOLESTEROL 248.0 mg/dL Above high normal 12/10/2024 - 200 [facility] HDL 77.0 mg/dL Normal 12/10/2024 60 - [facility] TRIGLYCERIDE WITH LDLD REFLEX 136.0 mg/dL Normal 12/10/2024 - 150 [facility] PATIENT FASTING? YES Normal 12/10/2024 [facility] TSH WITH REFLEX T4 FREE 4.67 uIU/mL Normal 08/17/2024 0.5 5 - 4.78 [facility] T4 FREE 1.59 ng/dL Normal 08/17/2024 0.89 - 1.76 [facility] LDL 117.0 mg/dL Normal 08/17/2024 - 160 [facility] TRIGLYCERIDE WITH LDLD REFLEX 116.0 mg/dL Normal 08/17/2024 - 150 [facility] HDL 80.0 mg/dL Above high normal 08/17/2024 40 - 60 [facility] CHOLESTEROL 220.0 mg/dL Above high normal 08/17/2024 - 200 [facility] PATIENT FASTING? YES Normal 08/17/2024 [facility] T4 FREE 1.42 ng/dL Normal 05/15/2024 0.89 - 1.76 [facility] HDL 83.0 mg/dL Above high normal 05/15/2024 40 - 60 [facility] LDL 116.0 mg/dL Normal 05/15/2024 - 160 [facility] CHOLESTEROL 227.0 mg/dL Above high normal 05/15/2024 - 200 [facility] TRIGLYCERIDE WITH LDLD REFLEX 139.0 mg/dL Normal 05/15/2024 - 150 [facility] PATIENT FASTING? NO Normal 05/15/2024 [facility] TSH WITH REFLEX T4 FREE 4.86 Above high normal 05/15/20 24 0.55 - 4.78 [facility] Encounters Encounter Type Encounter Reason Primary Diagnosis Location Date Ambulatory [facility] 12/10/2024 Ambulatory [facility] 08/17/2024 Ambulatory [facility]ES ARTHRITIS [facility] 07/15/2024 Ambulatory [facility] 05/15/2024 Ambulatory [facility] [employer] 04/20/2022 Ambulatory Benign neoplasm of ascending colon [facility] 02/08/2022 Ambulatory [facility] florent[facility] without dysplasia [facility] 08/09/2021 Ambulatory Personal history of colonic polyps [facility] 06/08/2021 Care Team Organization Name Specialty Phone Email Start Date End Da te [facility] [place] ADT 11/21/19 25 [facility] CCDA 025 [facility] - [place] CCDA 025 11/11/2024 [facility] KULDIP CEJA, Primary Care 10/08/2024 [facility] Fur Dresser (ECMP) [facility] Primary Care 10/07/2024 [facility] Primary Care 05/27/2024 12/05/2024 [facility] Primary Care 05/26/2024 [facility] Primary Care 05/25/2024 01/13/2025 [facility] Primary Care 05/15/2024 [facility], Primary Care 10/04/2023 [facility] P[facility] CEJA, Primary Care 10/04/2023 [facility] [employer] 08/13/2023 11/10/2023 [facility] - [place] ADT 01/19/20 23 2024 [facility] - [place] CCDA 023 11/07/2024 [facility] [employer], [facility] 04/23/2022 [facility], [facility] 04/20/2022 04/20/2022 [facility] Nir Ceja in Primary Care 02/08/2022 [facility] KULDIP CEJA, Primary Care 08/09/2021 02/08/2022 [facility], KULDIP INMAN I Primary Care 02/24/2021 01/27/2024
== END 2025-02-17 14:29 | disposition home or self-care (01) ==
LOC: HO.HOS 14:15
PROVIDERS: PCP Internal Medicine; Visit Provider Orthopaedic Surgery
DX: M17.0 Bilateral primary osteoarthritis of knee (principal)
CPT/HCPCS: 99213; G2211

== ENCOUNTER → 2025-02-17 14:14 | Outpatient (BNVA) | payer MEDICARE, SELFPAY | PROVIDERS: PCP Internal Medicine; Visit Provider Orthopaedic Surgery | DX: M17.0 Bilateral primary osteoarthritis of knee (principal) | CPT/HCPCS: 99212 ==

== ENCOUNTER 2025-05-20 10:33 | Outpatient (AMB) | payer MEDICARE, SELFPAY ==
[2025-05-20 10:36] VITALS: BMI 27.4
--- NOTE | 2025-05-20 10:36 | A.OFFVIS_ITS ---
Vital Signs 05/20/25 10:36 Height 5 ft 2 in Weight 150 lb BMI 27.4 Intake Visit Reasons: Bilateral knee pain Intake Note: Yamel is a 79 year old female who presents with complaints of bilateral knee pains. She describes her pains as sharp and severe in nature. She has failed the last 3 months of conservative treatment. She has had cortisone injections in the past which gave her minimal relief. She has also had viscosupplementation injections which gave her good relief. She wishes to hold off on surgery if at all possible. Allergies Seasonal Allergies Allergy (Intermediate, Verified 05/20/25 10:38) Watery Eye zeclar Allergy (Mild, Uncoded 05/20/25 10:38) Hives Medication List - Last Reconciled 05/20/25 by Konrad Gil MD amlodipine 5 mg PO DAILY estradiol (Estring) 1 vag ring vaginal [id number] hydrochlorothiazide 25 mg PO DAILY ibandronate mg PO levothyroxine 88 mcg PO DAILY omeprazole 40 mg PO DAILY PFSH Social History Current occupational status: retired Current occupation: rt handed Physical Exam Vital Signs: BMI result Body Mass Index 27.4 Extrem Other: Bilateral knee examination shows minimal effusions, palpable crepitus with range of motion, pain range of motion, no instability Office Procedures AMB Joint Injection/Aspiration Joint Injection/Aspiration Primary Site: Left Knee Prep: site was prepped using aseptic technique Injected: 60 mg of, Durolane, with 3 mL of and 1% plain Lidocaine Procedure: The patient tolerated the procedure well Coding 14847 - Large joint Procedure code (CPT) selection complete AMB Joint Injection/Aspiration Joint Injection/Aspiration Primary Site: Right Knee Prep: site was prepped using aseptic technique Injected: 60 mg of, Durolane, with 3 mL of and 1% plain Lidocaine Procedure: The patient tolerated the procedure well Coding 32270 - Large joint Procedure code (CPT) selection complete Results Reviewed Results Reviewed: X-rays of the patient's bilateral knees taken previously show joint space narrowing, subchondral sclerosis, no acute bony abnormalities Assessment & Plan Assessment & Plan (1) Osteoarthritis of left knee: Code(s): M17.12 - Unilateral primary osteoarthritis, left knee Category: Medical (2) Osteoarthritis of right knee: Code(s): M17.11 - Unilateral primary osteoarthritis, right knee Category: Medical (3) Pain in both knees: Code(s): M25.561 - Pain in right knee; M25.562 - Pain in left knee Plan Ms. Braun presents with bilateral knee pains due to osteoarthritis. The risks and benefits of bilateral knee Durolane viscosupplementation injections were discussed at length with the patient. The patient wished to proceed. She tolerated the injections well. She will continue with her home exercise progr am. She will contact me prior to her follow-up appointment in 3 months should any questions or concerns arise. Feel free to call me at any time should questions regarding her orthopedic management arise. I spent 20 minutes in reviewing the patient's records and imaging studies, seeing the patient and documenting in the medical record. Orders: Orders AMB Joint Injection/Aspiration Today M17.12 - Unilateral primary osteoarthritis, left knee AMB Joint Injection/Aspiration Today M17.11 - Unilateral primary osteoarthritis, right knee Coding Level of Care Code Est Pt Level 3 (10345) Add On Problem Visit Only Diagnoses Osteoarthritis of left knee M17.12 Osteoarthritis of right knee M17.11 Pain in both knees M25.561; M25.562 CPT Codes Coding - 13643 Large joint: 81608 - Large joint ([id number]) Coding - 34100 Large joint: 35698 - Large joint ([id number])
== END 2025-05-20 11:16 | disposition home or self-care (01) ==
LOC: HO.HOS 10:34
PROVIDERS: PCP Internal Medicine; Visit Provider Orthopaedic Surgery
DX: M17.0 Bilateral primary osteoarthritis of knee (principal); M25.561 Pain in right knee; M25.562 Pain in left knee
CPT/HCPCS: 20610; 99213

== ENCOUNTER → 2025-05-20 10:33 | Outpatient (BNVA) | payer MEDICARE, SELFPAY | PROVIDERS: PCP Internal Medicine; Visit Provider Orthopaedic Surgery | DX: M17.0 Bilateral primary osteoarthritis of knee (principal) | CPT/HCPCS: 20610; 99212; J2003; J7318 ==